=== PATIENT | male | born 1965 | race African-American/Black ===

== ENCOUNTER 2018-05-22 10:52 | Inpatient (IN) | payer OTHER ==
[2018-05-22 11:29] VITALS: BMI 29.6
[2018-05-22] MEDS ORDERED: ASPIRIN 81 MG CHEWABLE TABLETS PO ONE (12:06)
[2018-05-22 12:35] LABS: BASO % 1.3 % (0-2.0); EOS % 1.2 % (0-4.5); HEMOGLOBIN 13.9 GM/dL (11.7-16.9); LYMPH % 33.7 % (8-40); MCHC 35.7 g/dl (32.0-35.9); MEAN CELL VOLUME 100.9 fl (80-96); MONO % 7.4 % (3.8-10.2); NEUT % 56.4 % (42.8-82.8); PLATELET COUNT 167 K/MM3 (134-434); RBC 3.86 M/mm3 (4.00-5.60); RDW 14.3 % (11.9-15.9)
--- NOTE | 2018-05-22 12:44 | PDOC ---
History of Present Illness - General Chief Complaint: Chest Pain Stated Complaint: CHEST PAIN Time Seen by Provider: 05/22/18 12:00 - History of Present Illness Initial Comments: 05/22/18 12:42 52 yo M with h/o HTN, IDDM, Hypothyroidism who p/w left sided chest pain at rest. Patient endorses 2 weeks of unremitting, non radiating, non pleuritic, fluctuating, left sided, sharp, and dull chest pain, with no identifiable triggers or alleviators. Endorses palpitations lasting seconds and resolving yeserday (05/21/18) evening at rest. Denies h/o similiar presentation. No other asx. complaints. Patient denies SIMENTAL, vision change, palpitations, cough, wheezing, orthopena, PND , leg swelling/pain, N/V, F,C, SOB, urinary complaints, hematuria, BPR, abdominal pain, diarrhea, constipation, lightheadedness, weakness, sensory changes. PMHx: as noted above. Denies h/o ACS, MO, stent placement, CABG, DVT/PE FHx: Father ( MO ) ROS: as noted SHx: Etoh, IVDA, tobacco use Allergies: NKDA PMD: Sudhir Looney Past History - Past Medical History Allergies/Adverse Reactions: Allergies Allergy/AdvReac Type Severity Reaction Status Date / Time No Known Allergies Allergy Verified 05/22/18 11:24 Home Medications: Ambulatory Orders Levothyroxine [Synthroid -] 50 mcg PO DAILY 01/29/12 Escitalopram Oxalate [Lexapro -] 5 mg PO DAILY 01/24/15 Insulin (Levemir) [Levemir Vial] 30 units SQ DAILY 01/24/15 Insulin Lispro [Humalog] 30 units SQ BID 01/24/15 Losartan 50Mg/Hctz 12.5MG [Hyzaar -] 1 tab PO DAILY 01/24/15 Mercaptopurine [Purinethol -] 50 mg PO BID 01/24/15 Quetiapine Fumarate [Seroquel] 1 tab PO HS 01/24/15 predniSONE [Deltasone -] 20 mg PO DAILY 01/24/15 Anemia: No Asthma: No Cancer: No Cardiac Disorders: No CVA: No COPD: No CHF: No Dementia: No Diabetes: Yes (IDDM) GI Disorders: Yes (COLITIS) Disorders: No HTN: No Hypercholesterolemia: No Liver Disease: No Seizures: No Thyroid Disease: Yes (HYPO) - Surgical History Abdominal Surgery: No Appendectomy: No Cardiac Surgery: No Cholecystectomy: No Lung Surgery: No Neurologic Surgery: No Orthopedic Surgery: No - Suicide/Smoking/Psychosocial Hx Smoking Status: No Smoking History: Never smoked Have you smoked in the past 12 months: No Number of Cigarettes Smoked Daily: 0 Hx Alcohol Use: No Drug/Substance Use Hx: No Substance Use Type: None Hx Substance Use Treatment: No Cardiac Specific PMH - Complaint Specific PMHX Pacemaker: No Review of Systems - Review of Systems Comments:: 05/22/18 12:42 GENERAL/CONSTITUTIONAL: No fever or chills. No weakness. HEAD, EYES, EARS, NOSE AND THROAT: No change in vision. No ear pain or discharge. No sore throat. CARDIOVASCULAR: + chest pain. No shortness of breath RESPIRATORY: No cough, wheezing, or hemoptysis. GASTROINTESTINAL: No nausea, vomiting, diarrhea or constipation. GENITOURINARY: No dysuria, frequency, or change in urination. MUSCULOSKELETAL: No joint or muscle swelling or pain. No neck or back pain. SKIN: No rash NEUROLOGIC: No headache, vertigo, loss of consciousness, or change in strength/ sensation. ENDOCRINE: No increased thirst. No abnormal weight change HEMATOLOGIC/LYMPHATIC: No anemia, easy bleeding, or history of blood clots. ALLERGIC/IMMUNOLOGIC: No hives or skin allergy. *Physical Exam - Vital Signs Last Vital Signs Temp Pulse Resp BP Pulse Ox 98.4 F 88 18 126/71 99 05/22/18 11:24 05/22/18 11:24 05/22/18 11:24 05/22/18 11:24 05/22/18 11:24 - Physical Exam Comments: 05/22/18 12:42 GENERAL: Awake, alert, and fully oriented, in no acute distress HEAD: No signs of trauma, normocephalic, atraumatic EYES: PERRLA, EOMI, sclera anicteric, conjunctiva clear ENT: Hearing grossly normal, nares patent, oropharynx clear without exudates. Moist mucosa NECK: Normal ROM, supple, no lymphadenopathy, JVD, or masses LUNGS: No distress, speaks full sentences, clear to auscultation bilaterally HEART: Regular rate and rhythm, normal S1 and S2, no murmurs, rubs or gallops, peripheral pulses normal and equal bilaterally. ABDOMEN: Soft, nontender, normoactive bowel sounds. No guarding, no rebound. No masses EXTREMITIES : Normal inspection, Normal range of motion, no edema. No clubbing or cyanosis. NEUROLOGICAL: Cranial nerves II through XII grossly intact. Normal speech, normal gait, no focal sensorimotor deficits SKIN: Warm, Dry, normal turgor, no rashes or lesions noted Heart Score/ECG Review - History History: Slightly suspicious - Electrocardiogram EKG: Non specific repolarization disturbance - Age Age: 45-65 - Risk Factors Risk Factors Heart Score: Yes Hx Hypercholesterolemia, Yes Hx Hypertension, Yes Hx Diabetes, Yes Positive family hx of cardiac disease, Yes Hx Obesity Based on the list above the patient has:: >/=3 risk factors or Hx atherosclerotic disease - Troponin Troponin: 1-3x normal limit - Score Heart Score - Total: 5 Moderate Sedation - Procedure Monitoring Vital Signs: Procedure Monitoring Vital Signs Temperature 98.4 F 05/22/18 11:24 Pulse Rate 88 05/22/18 11:24 Respiratory Rate 18 05/22/18 11:24 Blood Pressure 126/71 05/22/18 11:24 O2 Sat by Pulse Oximetry (%) 99 05/22/18 11:24 ED Treatment Course - LABORATORY CBC & Chemistry Diagram: 05/22/18 12:17 05/22/18 12:06 - ADDITIONAL ORDERS Additional order review: Laboratory Results 05/22/18 05/22/18 05/22/18 12:17 12:17 12:06 PT with INR 11.50 INR 0.97 D-Dimer < 215 Sodium 141 Potassium 3.9 Chloride 107 Carbon Dioxide 28 Anion Gap 6 L BUN 13 Creatinine 1.0 Creat Clearance w eGFR 78.16 Random Glucose 124 H Calcium 8.4 L Magnesium 2.2 Total Bilirubin 0.6 AST 27 ALT 42 Alkaline Phosphatase 70 Creatine Kinase 542 H Creatine Kinase Index 0.6 CK-MB (CK-2) 3.5 Troponin I < 0.02 Total Protein 6.9 Albumin 3.9 05/22/18 12:17 RBC 3.86 L MCV 100.9 H MCHC 35.7 RDW 14.3 D MPV 9.0 Neutrophils % 56.4 D Lymphocytes % 33.7 D Monocytes % 7.4 Eosinophils % 1.2 Basophils % 1.3 D - Medications Given in the ED: ED Medications Discontinued Medications Generic Name Dose Route Start Last Admin Trade Name Sylvie PRN Reason Stop Dose Admin Aspirin 162 mg 05/22/18 12:06 05/22/18 12:56 Asa - PO 05/22/18 12:07 162 mg ONCE ONE Administration Medical Decision Making - Medical Decision Making 05/22/18 12:43 52 yo M with h/o HTN, IDDM, Ulcerative Colitis, Hypothyroidism who p/w chest pain at rest x 2 weeks, and palpitations x 1 day. Vitals wnl, AF, A&Ox3. Physical exam unremarkable. ACS/Mi r/o. Low risk PE based on Weils criteria. Will consider PNA, pericardial or pleural effusion, pericarditis, costochondrritis, gastritis, esophagitis. Plan to admit tele/obs, multiple risk factors, suspicious presentation. PMD Sudhir Looney. Dr. underwood admit [id number] ED Course: Arrives from fast track. Pending labs, CXR Received ASA 05/22/18 12:59 CBC,CMP: Unremarkable Trop: Neg 05/22/18 13:02 Heart score 4 EKG: Sinus bradycardia 56, LVH, LAD, absent NANCY, STD. Nml interval duration and axis. 05/22/18 15:[address] Underwood answering service. Awaiting call back . 05/22/18 15:[address] underwood. Admitted Consult for Dr. obrien placed *DC/Admit/Observation/Transfer Diagnosis at time of Disposition: Chest pain at rest - Discharge Dispostion Condition at time of disposition: Stable Decision to Admit order: Yes Decision to Admit order Date/Time: Decision to Admit Order Category Date Time Status Decision to Admit to Hospital Routine Admission 05/22/18 13:02 Active - Referrals Referrals: Sudhir Looney MD [Primary Care Provider] - Kendrick Garner MD [Staff Physician] - - Patient Instructions Printed Discharge Instructions: DI for Chest Pain Additional Instructions: Please return to the emergency department with any new or worsening symptoms or concerns. Please follow up with your primary care physician within 72 hours. Please follow up with cardiology within 48 hours. - Post Discharge Activity - Attestations Physician Attestion: 05/22/18 12:44 I attest to the information provided in this note.
[2018-05-22 12:45] LABS: INR 0.97 (0.83-1.09); PROTHROMBIN TIME (PATIENT) 11.5 SEC (9.7-13.0)
[2018-05-22] MEDS ORDERED: ASPIRIN COATED 81 MG TABLET.EC ONE (12:54)
[2018-05-22] MEDS ORDERED: ASPIRIN 81 MG CHEWABLE TABLETS ONE (12:56)
[2018-05-22 13:19] LABS: ALBUMIN 3.9 g/dl (3.4-5.0); ALK PHOS 70 U/L (45-117); ANION GAP 6 MMOL/L (8-16); BILIRUBIN,TOTAL 0.6 mg/dL (0.2-1); BLOOD UREA NITROGEN 13 mg/dL (7-18); CALCIUM 8.4 mg/dL (8.5-10.1); CHLORIDE 107 mmol/L (98-107); CO2 28 mmol/L (21-32); GLUCOSE,RANDOM 124 mg/dL (74-106); MAGNESIUM 2.2 mg/dL (1.8-2.4); POTASSIUM 3.9 mmol/L (3.5-5.1); SGOT/AST 27 U/L (15-37); SGPT/ALT 42 U/L (13-61); SODIUM 141 mmol/L (136-145); TOT PROT 6.9 g/dl (6.4-8.2)
--- NOTE | 2018-05-22 16:06 | PDOC ---
Attending Attestation - Resident Resident Name: Tyler Tejeda - ED Attending Attestation I have performed the following: I have examined & evaluated the patient, The case was reviewed & discussed with the resident, I agree w/resident's findings & plan, Exceptions are as noted - HPI HPI: 05/22/18 16:05 52 M with HTN, IDDM, Hypothyroidism presenting to ED with L sided chest pain. No SOB. No F/C/cough. No leg swelling. No h/o DVT. No recent travel/ immobilization. - Physicial Exam PE: 05/22/18 16:05 "GENERAL: Awake, alert, and fully oriented, in no acute distress. HEAD: No signs of trauma EYES: PERRLA, EOMI, sclera anicteric, conjunctiva clear ENT: Auricles normal inspection, hearing grossly normal, nares patent, oropharynx clear without exudates. Moist mucosa NECK: Nontender, no stepoffs, Normal ROM, supple, no lymphadenopathy, JVD, or masses LUNGS: Breath sounds equal, clear to auscultation bilaterally. No wheezes, and no crackles HEART: Regular rate and rhythm, normal S1 and S2, no murmurs, rubs or gallops ABDOMEN: Soft, nontender, normoactive bowel sounds. No guarding, no rebound. No masses EXTREMITIES: Normal range of motion, no edema. No clubbing or cyanosis. No cords, erythema, or tenderness NEUROLOGICAL: Cranial nerves II through XII intact. 5/5 strength and sensation in all extremities, Normal speech, normal gait, normal cerebellar function SKIN: Warm, Dry, normal turgor, no rashes or lesions noted. - Medical Decision Making 05/22/18 16:05 52 M with chest pain. Has + family history of cardiac disease. - Labs, trop - CXR
[2018-05-22 23:17] LABS: URINE APPEARANCE CLEAR; URINE BILIRUBIN NEGATIVE (<2.0 mg/dL); URINE COLOR LTYELLOW; URINE GLUCOSE (UA) 3+ (NEGATIVE); URINE KETONE NEGATIVE (NEGATIVE); URINE LEUK ESTERASE NEGATIVE (NEGATIVE); URINE NITRITE NEGATIVE (NEGATIVE); URINE PROTEIN NEGATIVE (NEGATIVE)
[2018-05-23] MEDS: INSULIN (LEVEMIR) 100 UNITS/ML UNITS SQ SCH (06:08)
[2018-05-23] MEDS: INSULIN SLIDING SCALE (NOVOLOG) 1 VIAL SQ SCH ×4 (06:09→21:10)
[2018-05-23] MEDS: LEVOTHYROXINE NA 50 MCG TABLET (FP) PO SCH (06:10)
[2018-05-23] MEDS: INSULIN (NOVOLOG) ASPART 100 UNITS/ML 10ML VIAL SQ SCH ×2 (06:14→17:54)
[2018-05-23 07:17] LABS: BASO % 0.6 % (0-2.0); EOS % 1.8 % (0-4.5); HEMATOCRIT 35.8 % (35.4-49); HEMOGLOBIN 12.7 GM/dL (11.7-16.9); LYMPH % 28.8 % (8-40); MCH 35.6 pg (25.7-33.7); MCHC 35.4 g/dl (32.0-35.9); MEAN CELL VOLUME 100.7 fl (80-96); MEAN PLT VOLUME 9.3 fl (7.5-11.1); MONO % 6.8 % (3.8-10.2); PLATELET COUNT 150 K/MM3 (134-434); RBC 3.56 M/mm3 (4.00-5.60); RDW 14.6 % (11.9-15.9); WHITE BLOOD COUNT 3.4 K/mm3 (4.0-10.0)
[2018-05-23 07:38] LABS: ALBUMIN 3.3 g/dl (3.4-5.0); ALK PHOS 63 U/L (45-117); ANION GAP 5 MMOL/L (8-16); BILIRUBIN,TOTAL 0.7 mg/dL (0.2-1); BLOOD UREA NITROGEN 16 mg/dL (7-18); CALCIUM 8.2 mg/dL (8.5-10.1); CHLORIDE 103 mmol/L (98-107); CO2 28 mmol/L (21-32); CREATININE 1.1 mg/dL (0.55-1.3); GLUCOSE,RANDOM 284 mg/dL (74-106); POTASSIUM 4.1 mmol/L (3.5-5.1); SGOT/AST 20 U/L (15-37); SGPT/ALT 35 U/L (13-61); SODIUM 136 mmol/L (136-145)
[2018-05-23 08:15] LABS: CHOLESTEROL 119 mg/dL (50-200); HDL CHOLESTEROL 51 mg/dL (40-60); TRIGLYCERIDES 69 mg/dL (0-150)
--- NOTE | 2018-05-23 09:44 | CON.CARD ---
Consult Consult Specialty:: Cardiology Referred by:: Dr. Underwood Reason for Consultation:: chest pain - History of Present Illness Chief Complaint: chest pain History of Present Illness: 52M with Ulcerative Colitis, DM and HTN presents with an episode of palpitations and one month of sharp, left sided chest pain. Pain occurs at rest, non-exertional. Lasts several seconds. No associated N/V or diaphoresis. No syncope. No PND or orthopnea. No edema. - History Source History Provided By: Patient Limitations to Obtaining History: No Limitations - Past Medical History Cardio/Vascular: Yes: HTN Gastrointestinal: Yes: Ulcerative Colitis Psych: Yes: Depression Endocrine: Yes: Diabetes Insipidus, Hypothyroidism - Alcohol/Substance Use Hx Alcohol Use: No - Smoking History Smoking history: Never smoked Have you smoked in the past 12 months: No Aproximately how many cigarettes per day: 0 - Social History Usual Living Arrangement: Alone History of Recent Travel: No Home Medications - Allergies Allergies/Adverse Reactions: Allergies Allergy/AdvReac Type Severity Reaction Status Date / Time No Known Allergies Allergy Verified 05/22/18 11:24 - Home Medications Home Medications: Ambulatory Orders Levothyroxine [Synthroid -] 50 mcg PO DAILY 01/29/12 Escitalopram Oxalate [Lexapro -] 5 mg PO DAILY 01/24/15 Insulin (Levemir) [Levemir Vial] 30 units SQ DAILY 01/24/15 Insulin Lispro [Humalog] 30 units SQ BID 01/24/15 Losartan 50Mg/Hctz 12.5MG [Hyzaar -] 1 tab PO DAILY 01/24/15 Mercaptopurine [Purinethol -] 50 mg PO BID 01/24/15 Quetiapine Fumarate [Seroquel] 1 tab PO HS 01/24/15 predniSONE [Deltasone -] 20 mg PO DAILY 01/24/15 Family Disease History - Family Disease History Family Disease History: Heart Disease: Father, Mother Review of Systems Findings/Remarks: see HPI - Review of Systems Constitutional: reports: No Symptoms Eyes: reports: No Symptoms HENT: reports: No Symptoms Neck: reports: No Symptoms Cardiovascular: reports: Chest Pain Gastrointestinal: reports: No Symptoms Genitourinary: reports: No Symptoms Breasts: reports: No Symptoms Reported Musculoskeletal: reports: No Symptoms Integumentary: reports: No Symptoms Neurological: reports: No Symptoms Endocrine: reports: No Symptoms Hematology/Lymphatic: reports: No Symptoms Psychiatric: reports: No Symptoms - Risk Factors Known Risk Factors: Yes: Diabetes Mellitus, Hypertension Vital Signs: Vital Signs Temperature 97.8 F 05/23/18 04:42 Pulse Rate 52 L 05/23/18 04:42 Respiratory Rate 18 05/23/18 05:31 Blood Pressure 116/59 L 05/23/18 04:42 O2 Sat by Pulse Oximetry (%) 98 05/23/18 05:31 Constitutional: Yes: No Distress, Calm Eyes: Yes: Conjunctiva Clear, EOM Intact Neck: Yes: Supple Respiratory: Yes: CTA Bilaterally Gastrointestinal: Yes: Soft Cardiovascular: Yes: Regular Rate and Rhythm JVD: No Carotid Bruit: No Heart Sounds: Yes: S1, S2 Edema: No Peripheral Pulses WNL: Yes Neurological: Yes: Alert, Oriented ...Motor Strength: WNL Psychiatric: Yes: WNL - Other Data Labs, Other Data: CBC, BMP 05/23/18 06:35 05/23/18 06:35 INR, PTT INR 0.97 (0.83-1.09) 05/22/18 12:17 Troponin, BNP 05/22/18 05/23/18 12:06 06:35 Troponin I < 0.02 < 0.02 Troponin, BNP 05/22/18 05/23/18 12:06 06:35 Troponin I < 0.02 < 0.02 Sinus Freddie 56bpm, LAD. Echo: Pending Ejection Fraction %: LVEF > or = 40 % Imaging - Results Chest X-ray: Image Reviewed EKG: Image Reviewed Problem List - Problems (1) Chest pain at rest Code(s): R07.9 - CHEST PAIN, UNSPECIFIED (2) Hypertension Code(s): I10 - ESSENTIAL (PRIMARY) HYPERTENSION Qualifiers: Hypertension type: essential hypertension Qualified Code(s): I10 - Essential (primary) hypertension (3) Diabetes Code(s): E11.9 - TYPE 2 DIABETES MELLITUS WITHOUT COMPLICATIONS Qualifiers: Diabetes mellitus type: type 2 Assessment/Plan IMP: Atypical chest pain Hypertension Type 2 DM REC: 1. ASA 2. Echo for EF and wall motion, r/o pericardial disease 3. For stress MPI prior to discharge.
[2018-05-23] MEDS ORDERED: LOSARTAN 50MG/HCTZ 12.5MG 1 TAB (FP) PO SCH (10:00)
[2018-05-23] MEDS: HYDROCHLOROTHIAZIDE 12.5 MG CAPSULE (FP) PO SCH (10:41)
[2018-05-23] MEDS: ESCITALOPRAM OXALATE 10 MG TABLET (FP) PO SCH (10:41)
[2018-05-23] MEDS: LOSARTAN POTASSIUM 50 MG TABLET (FP) PO SCH (10:42)
[2018-05-23] MEDS: HEPARIN NA (PORCINE) 5,000 UNITS/ML 1ML VIAL SQ SCH ×2 (10:42→21:03)
[2018-05-23] MEDS: ASPIRIN COATED 81 MG TABLET.EC PO SCH (10:42)
[2018-05-23] MEDS ORDERED: PT OWN MED DRAWER 7, Y5N ONE ×2 (12:46→20:59)
[2018-05-23] MEDS: MERCAPTOPURINE 50 MG TABLET PO SCH ×2 (12:47→21:04)
--- NOTE | 2018-05-23 17:35 | HP ---
Admitting History and Physical - Past Medical History Cardiovascular: Yes: HTN Gastrointestinal: Yes: Ulcerative Colitis Psych: Yes: Depression Endocrine: Yes: Diabetes Insipidus, Hypothyroidism - Smoking History Smoking history: Never smoked Have you smoked in the past 12 months: No Aproximately how many cigarettes per day: 0 - Alcohol/Substance Use Hx Alcohol Use: No - Social History History of Recent Travel: No Home Medications - Allergies Allergies/Adverse Reactions: Allergies Allergy/AdvReac Type Severity Reaction Status Date / Time No Known Allergies Allergy Verified 05/22/18 11:24 - Home Medications Home Medications: Ambulatory Orders Levothyroxine [Synthroid -] 50 mcg PO DAILY 01/29/12 Escitalopram Oxalate [Lexapro -] 5 mg PO DAILY 01/24/15 Insulin (Levemir) [Levemir Vial] 30 units SQ DAILY 01/24/15 Insulin Lispro [Humalog] 30 units SQ BID 01/24/15 Losartan 50Mg/Hctz 12.5MG [Hyzaar -] 1 tab PO DAILY 01/24/15 Mercaptopurine [Purinethol -] 50 mg PO BID 01/24/15 Quetiapine Fumarate [Seroquel] 1 tab PO HS 01/24/15 predniSONE [Deltasone -] 20 mg PO DAILY 01/24/15 Family Disease History - Family Disease History Family Disease History: Heart Disease: Father, Mother Physical Examination Vital Signs: Vital Signs Temperature 98.1 F 05/23/18 14:00 Pulse Rate 69 05/23/18 14:00 Respiratory Rate 18 05/23/18 10:00 Blood Pressure 136/77 05/23/18 14:00 O2 Sat by Pulse Oximetry (%) 98 05/23/18 05:31 Labs: CBC, BMP 05/23/18 06:35 05/23/18 06:35
--- NOTE | 2018-05-23 18:05 | EKG ---
Test Reason : Blood Pressure : / mmHG Vent. Rate : 056 BPM Atrial Rate : 056 BPM P-R Int : 134 ms QRS Dur : 092 ms QT Int : 450 ms P-R-T Axes : 057 -34 -18 degrees QTc Int : 434 ms SINUS BRADYCARDIA POSSIBLE LEFT ATRIAL ENLARGEMENT LEFT AXIS DEVIATION LEFT VENTRICULAR HYPERTROPHY ABNORMAL ECG WHEN COMPARED WITH ECG OF 18-NOV-2008 19:01, NO SIGNIFICANT CHANGE WAS FOUND Confirmed by MD MELANY, HUY ([id number]) on 05/23/2018 6:05:33 PM Referred By: Confirmed By:HUY MOSLEY MD
[2018-05-24] MEDS: INSULIN (LEVEMIR) 100 UNITS/ML UNITS SQ SCH (06:08)
[2018-05-24] MEDS: LEVOTHYROXINE NA 50 MCG TABLET (FP) PO SCH (06:08)
[2018-05-24] MEDS: INSULIN SLIDING SCALE (NOVOLOG) 1 VIAL SQ SCH ×5 (06:09→22:12)
[2018-05-24] MEDS: INSULIN (NOVOLOG) ASPART 100 UNITS/ML 10ML VIAL SQ SCH ×2 (06:10→17:11)
[2018-05-24] MEDS: LOSARTAN POTASSIUM 50 MG TABLET (FP) PO SCH (09:17)
[2018-05-24] MEDS: HYDROCHLOROTHIAZIDE 12.5 MG CAPSULE (FP) PO SCH (09:17)
[2018-05-24] MEDS: HEPARIN NA (PORCINE) 5,000 UNITS/ML 1ML VIAL SQ SCH ×2 (09:18→21:29)
[2018-05-24] MEDS: ESCITALOPRAM OXALATE 10 MG TABLET (FP) PO SCH (09:18)
[2018-05-24] MEDS: ASPIRIN COATED 81 MG TABLET.EC PO SCH (09:20)
--- NOTE | 2018-05-24 09:39 | PN ---
Progress Note, Physician Chief Complaint: seen and examined Describes constant chest pain under left arm, pectoral region - Current Medication List Current Medications: Active Medications Aspirin (Ecotrin -) 81 mg PO DAILY [facility] Last Admin: 05/24/18 09:20 Dose: 81 mg Escitalopram Oxalate (Lexapro -) 5 mg PO DAILY [facility] Last Admin: 05/24/18 09:18 Dose: Not Given Heparin Sodium (Porcine) (Heparin -) 5,000 unit SQ BID [facility] Last Admin: 05/24/18 09:18 Dose: 5,000 unit Hydrochlorothiazide (Hctz -) 12.5 mg PO DAILY [facility] Last Admin: 05/24/18 09:17 Dose: 12.5 mg [facility] Admin: 05/24/18 06:10 Dose: Not Given Insulin Aspart (Novolog Vial Sliding Scale -) 1 vial SQ [facility]; Protocol Last Admin: 05/24/18 06:09 Dose: 2 units Insulin Detemir (Levemir Vial) 30 units SQ DAILY@0700 [facility] Last Admin: 05/24/18 06:08 Dose: 30 units Levothyroxine Sodium (Synthroid -) 50 mcg PO DAILY@0700 [facility] Last Admin: 05/24/18 06:08 Dose: 50 mcg Losartan Potassium (Cozaar -) 50 mg PO DAILY [facility] Last Admin: 05/24/18 09:17 Dose: 50 mg Mercaptopurine (Purinethol -) 50 mg PO BID [facility] Last Admin: 05/23/18 21:04 Dose: 50 mg - Objective Vital Signs: Vital Signs Temperature 97.7 F 05/24/18 09:00 Pulse Rate 53 L 05/24/18 09:00 Respiratory Rate 17 05/24/18 09:00 Blood Pressure 122/69 05/24/18 09:00 O2 Sat by Pulse Oximetry (%) 100 05/24/18 09:00 Constitutional: Yes: No Distress Cardiovascular: Yes: Regular Rate and Rhythm Respiratory: Yes: CTA Bilaterally Gastrointestinal: Yes: Soft Edema: No Neurological: Yes: Alert, Oriented ...Motor Strength: WNL Labs: CBC, BMP 05/23/18 06:35 05/23/18 06:35 INR, PTT INR 0.97 (0.83-1.09) 05/22/18 12:17 - ....Imaging EKG: Image Reviewed Problem List - Problems (1) Chest pain at rest Code(s): R07.9 - CHEST PAIN, UNSPECIFIED (2) Hypertension Code(s): I10 - ESSENTIAL (PRIMARY) HYPERTENSION Qualifiers: Hypertension type: essential hypertension Qualified Code(s): I10 - Essential (primary) hypertension (3) Diabetes Code(s): E11.9 - TYPE 2 DIABETES MELLITUS WITHOUT COMPLICATIONS Qualifiers: Diabetes mellitus type: type 2 Assessment/Plan IMP: Atypical chest pain Hypertension Type 2 DM REC: 1. ASA 2. Echo for EF and wall motion, r/o pericardial disease 3. For stress MPI prior to discharge. If above negative, plan for d/c early afternoon tomorrow.
[2018-05-24] MEDS: MERCAPTOPURINE 50 MG TABLET PO SCH ×2 (10:28→21:29)
--- NOTE | 2018-05-24 19:56 | PN ---
Progress Note, Physician History of Present Illness: Pt still complains of SSCP mostly near Lt arm wc is nonreproducible - Current Medication List Current Medications: Active Medications Aspirin (Ecotrin -) 81 mg PO DAILY [facility] Last Admin: 05/24/18 09:20 Dose: 81 mg Escitalopram Oxalate (Lexapro -) 5 mg PO DAILY [facility] Last Admin: 05/24/18 09:18 Dose: Not Given Heparin Sodium (Porcine) (Heparin -) 5,000 unit SQ BID [facility] Last Admin: 05/24/18 09:18 Dose: 5,000 unit Hydrochlorothiazide (Hctz -) 12.5 mg PO DAILY [facility] Last Admin: 05/24/18 09:17 Dose: 12.5 mg [facility] Last Admin: 05/24/18 17:11 Dose: Not Given Insulin Aspart (Novolog Vial Sliding Scale -) 1 vial SQ [facility]; Protocol Last Admin: 05/24/18 17:11 Dose: Not Given Insulin Detemir (Levemir Vial) 30 units SQ DAILY@0700 [facility] Last Admin: 05/24/18 06:08 Dose: 30 units Levothyroxine Sodium (Synthroid -) 50 mcg PO DAILY@0700 [facility] Last Admin: 05/24/18 06:08 Dose: 50 mcg Losartan Potassium (Cozaar -) 50 mg PO DAILY [facility] Last Admin: 05/24/18 09:17 Dose: 50 mg Mercaptopurine (Purinethol -) 50 mg PO BID [facility] Last Admin: 05/24/18 10:28 Dose: 50 mg - Objective Vital Signs: Vital Signs Temperature 97.7 F 05/24/18 17:00 Pulse Rate 57 L 05/24/18 17:00 Respiratory Rate 20 05/24/18 17:00 Blood Pressure 114/73 05/24/18 17:00 O2 Sat by Pulse Oximetry (%) 100 05/24/18 09:00 Constitutional: Yes: Well Nourished HENT: Yes: WNL Neck: Yes: WNL, Supple Cardiovascular: Yes: WNL, Regular Rate and Rhythm Respiratory: Yes: WNL, Regular, CTA Bilaterally Gastrointestinal: Yes: WNL, Normal Bowel Sounds, Soft Edema: No Labs: CBC, BMP 05/23/18 06:35 05/23/18 06:35 INR, PTT INR 0.97 (0.83-1.09) 05/22/18 12:17 Problem List - Problems (1) Chest pain Assessment/Plan: As per cardio Cont ASA Monitor BP Await echo/stress test Code(s): R07.9 - CHEST PAIN, UNSPECIFIED (2) Diabetes Assessment/Plan: Cont sliding scale w/ coverage Cont levemir/novolog Code(s): E11.9 - TYPE 2 DIABETES MELLITUS WITHOUT COMPLICATIONS Qualifiers: Diabetes mellitus type: type 2 (3) Hypertension Assessment/Plan: BP stable Cont losartan/hctz Code(s): I10 - ESSENTIAL (PRIMARY) HYPERTENSION Qualifiers: Hypertension type: essential hypertension Qualified Code(s): I10 - Essential (primary) hypertension (4) Hypothyroidism Assessment/Plan: Cont levothyroxine Code(s): E03.9 - HYPOTHYROIDISM, UNSPECIFIED (5) Depression Assessment/Plan: Cont lexapro Code(s): F32.9 - MAJOR DEPRESSIVE DISORDER, SINGLE EPISODE, UNSPECIFIED
[2018-05-24] MEDS ORDERED: PT OWN MED DRAWER 7, Y5N ONE (21:21)
[2018-05-25] MEDS: INSULIN (NOVOLOG) ASPART 100 UNITS/ML 10ML VIAL SQ SCH ×2 (06:10→18:06)
[2018-05-25] MEDS: INSULIN (LEVEMIR) 100 UNITS/ML UNITS SQ SCH (06:10)
[2018-05-25] MEDS: LEVOTHYROXINE NA 50 MCG TABLET (FP) PO SCH (06:11)
[2018-05-25] MEDS: INSULIN SLIDING SCALE (NOVOLOG) 1 VIAL SQ SCH ×3 (06:45→16:46)
[2018-05-25] MEDS: LOSARTAN POTASSIUM 50 MG TABLET (FP) PO SCH (12:57)
[2018-05-25] MEDS: ASPIRIN COATED 81 MG TABLET.EC PO SCH (12:57)
[2018-05-25] MEDS: HYDROCHLOROTHIAZIDE 12.5 MG CAPSULE (FP) PO SCH (12:58)
[2018-05-25] MEDS: HEPARIN NA (PORCINE) 5,000 UNITS/ML 1ML VIAL SQ SCH (12:58)
[2018-05-25] MEDS: ESCITALOPRAM OXALATE 10 MG TABLET (FP) PO SCH (12:59)
[2018-05-25] MEDS: MERCAPTOPURINE 50 MG TABLET PO SCH (13:16)
--- NOTE | 2018-05-25 16:05 | ECHO ---
Name: BRYANT DUNN Exam:Adult Echocardiogram Study Date: 05/25/2018 08:17 AM Age: 52 yrs Reason For Study: Chest pain Height: 69 in Weight: 207 lb BSA: 2.1 m2 MMode/2D Measurements & Calculations IVSd: 1.00 cm Ao root diam: 3.3 cm LVIDd: 5.2 cm LA dimension: 3.8 cm LVIDs: 3.8 cm LVPWd: 0.99 cm EDV(Teich): 131.9 ml LVOT diam: 2.3 cm ESV(Teich): 61.0 ml TAPSE: 3.6 cm Doppler Measurements & Calculations MV E max margarito: 57.3 cm/sec Ao V2 max: 134.0 cm/sec MV A max margarito: 70.6 cm/sec Ao max P.2 mmHg MV E/A: 0.81 Ao V2 mean: 94.8 cm/sec MV dec time: 0.26 sec Ao mean P.0 mmHg Ao V2 VTI: 30.5 cm MELISSA(I,D): 1.9 cm2 MELISSA(V,D): 1.8 cm2 LV V1 max P.5 mmHg MR max margarito: 398.2 cm/sec LV V1 mean P.0 mmHg MR max P.6 mmHg LV V1 max: 60.4 cm/sec LV V1 mean: 39.1 cm/sec LV V1 VTI: 14.4 cm SV(LVOT): 57.0 ml TR max margarito: 188.9 cm/sec TR max P.5 mmHg PI end-d margarito: 99.8 cm/sec Med Peak E' Margarito: 4.5 cm/sec Med E/e': 12.8 Lat Peak E' Margarito: 5.8 cm/sec Lat E/e': 10.0 Procedure A complete two-dimensional transthoracic echocardiogram was performed (2D, M-mode, Doppler and color flow Doppler). Left Ventricle The left ventricle is normal in size. Left ventricular systolic function is normal. Ejection Fraction = 55- 60%. Grade I diastolic dysfunction, (abnormal relaxation pattern). Ratio E/E'= 12. No regional wall m otion abnormalities noted. Right Ventricle The right ventricle is normal size. The right ventricular systolic function is normal. RV systolic TD I is 13 cm/s. Atria The left atrial size is normal. Right atrial size is normal. Mitral Valve There is mild mitral annular calcification. There is mild to moderate mitral regurgitation. Tricuspid Valve The tricuspid valve is normal in structure and function. There is mild tricuspid regurgitation. Right ventricular systolic pressure is normal. Aortic Valve The aortic valve is normal in structure and function. No aortic regurgitation is present. Pulmonic Valve The pulmonic valve is not well visualized. Trace pulmonic valvular regurgitation. Great Vessels The aortic root is normal size. Pericardium/Pleura There is no pericardial effusion. Interpretation Summary The left ventricle is normal in size. Left ventricular systolic function is normal. No regional wall motion abnormalities noted. Ejection Fraction = 55-60%. Grade I diastolic dysfunction, (abnormal relaxation pattern). Ratio E/E'= 12 The right ventricular systolic function is normal. The left atrial size is normal. Right atrial size is normal. There is mild mitral annular calcification. There is mild to moderate mitral regurgitation. There is mild tricuspid regurgitation. Right ventricular systolic pressure is normal. Trace pulmonic valvular regurgitation. There is no pericardial effusion. Previous study is not available for comparison Kendrick Garner MD 05/25/2018 04:05 PM
[2018-05-25 17:30] VITALS: BP 129/78; PULSE 60; TEMP 97.9
== END 2018-05-25 18:55 | disposition home or self-care (01) | DRG 313 ==
LOC: JER 10:52 → JERBED 13:02 → J4W 21:42 → OBSVTOIN 05-23 03:04
PROVIDERS: ADMIT Internal Medicine; ATTEND Internal Medicine
DX: R07.89 Other chest pain (principal); K51.90 Ulcerative colitis, unspecified, without complications; E23.2 Diabetes insipidus; E03.9 Hypothyroidism, unspecified; Z79.4 Long term (current) use of insulin; F32.9 Major depressive disorder, single episode, unspecified; I10 Essential (primary) hypertension; E66.9 Obesity, unspecified; Z68.29 Body mass index [BMI] 29.0-29.9, adult; Z82.49 Family history of ischemic heart disease and other diseases of the circulatory system
CPT/HCPCS: 36415; 71046-TC-FY; 78452-TC; 80053; 80061; 81003; 82550; 82553; 82962; 83721; 83735; 84484; 85025; 85379; 85610; 93005; 93010; 93017; 93306-TC; 99283-25; A9502; G0378; J1644

== ENCOUNTER 2018-11-17 17:51 | Observation (INO) | payer OTHER ==
[2018-11-17 18:12] VITALS: BMI 30.1
--- NOTE | 2018-11-17 18:21 | PDOC ---
Rapid Medical Evaluation Chief Complaint: Palpitations Time Seen by Provider: 11/17/18 18:12 Medical Evaluation: Allergies Allergy/AdvReac Type Severity Reaction Status Date / Time No Known Allergies Allergy Verified 11/17/18 18:12 Vital Signs Temp Pulse Resp BP Pulse Ox 97.7 F 59 L 16 109/64 97 11/17/18 17:59 11/17/18 17:59 11/17/18 17:59 11/17/18 17:59 11/17/18 17:59 11/17/18 18:36 The patient presents with a chief complaint of: left sided cp, intermittent palpitations x 2 days, left eye twitching, hx cardiac stent, sent by pcp for eval I have performed a brief in-person evaluation of this patient. Pertinent physical exam findings: vss, lcta, no reproducible cp I have ordered the following: cardiac w/u The patient will proceed to the ED for further evaluation. Discharge Disposition - Diagnosis Chest pain - Referrals - Patient Instructions - Post Discharge Activity
--- NOTE | 2018-11-17 19:46 | PDOC ---
History of Present Illness - General Chief Complaint: Palpitations Stated Complaint: CARDIAC EVENT Time Seen by Provider: 11/17/18 18:12 History Source: Patient - History of Present Illness Initial Comments: 53 y/o/m here for chest palpitations and left arm tingling x2 weeks. He had a cardiac cath with stent placement 4 months ago at [facility] for clogged arteries. He states the palpitations have become more frequent over the last 2 weeks. He also has a tingling sensation in his left arm. He was cleared to resume normal physical activity 1 month ago and has been going to the gym and lifting weights. He states the tingling sensation in his left arm is worse after working out. He also complains that his left eye has been twitching for the last 2 weeks as well. He denies any change or loss of vision associated with the twitching. He denies any chest pain, SOB, dizziness, fever, cough, dysuria, or other complaints. PMHx: DM, Ulcerative colitis, HTN, hypothyroidism SHx: Cardiac Catheterization Social: denies alcohol and tobacco use PCP: Dr. Sudhir Looney Past History - Past Medical History Allergies/Adverse Reactions: Allergies Allergy/AdvReac Type Severity Reaction Status Date / Time No Known Allergies Allergy Verified 11/17/18 18:12 Home Medications: Ambulatory Orders Levothyroxine [Synthroid -] 50 mcg PO DAILY 01/29/12 Escitalopram Oxalate [Lexapro -] 5 mg PO DAILY 01/24/15 Insulin (Levemir) [Levemir Vial] 30 units SQ DAILY 01/24/15 Insulin Lispro [Humalog] units SQ BID 01/24/15 Losartan 50Mg/Hctz 12.5MG [Hyzaar -] 1 tab PO DAILY 01/24/15 Mercaptopurine [Purinethol -] 50 mg PO BID 01/24/15 Quetiapine Fumarate [Seroquel] 1 tab PO HS 01/24/15 Aspirin 81 mg PO DAILY 11/17/18 Clopidogrel Bisulfate [Plavix -] 75 mg PO DAILY 11/17/18 Anemia: No Asthma: No Cancer: No Cardiac Disorders: No CVA: No COPD: No CHF: No Dementia: No Diabetes: Yes GI Disorders: Yes (COLITIS) Disorders: No HTN: Yes Hypercholesterolemia: Yes Liver Disease: No Seizures: No Thyroid Disease: Yes (HYPO) - Surgical History Abdominal Surgery: No Appendectomy: No Cardiac Surgery: Yes (stent placed 4 months ago) Cholecystectomy: No Lung Surgery: No Neurologic Surgery: No Orthopedic Surgery: No - Suicide/Smoking/Psychosocial Hx Smoking Status: No Smoking History: Never smoked Have you smoked in the past 12 months: No Number of Cigarettes Smoked Daily: 0 Hx Alcohol Use: No Drug/Substance Use Hx: No Substance Use Type: None Hx Substance Use Treatment: No Review of Systems - Review of Systems Constitutional: No: Chills, Fever, Weakness HEENTM: Yes: Other (left eye twitching). No: Blurred Vision, Recent change in vision, Double Vision, Nose Congestion Respiratory: No: Cough, Shortness of Breath Cardiac (ROS): No: Chest Pain, Lightheadedness ABD/GI: No: Diarrhea, Nausea, Vomiting : No: Dysuria, Hematuria Integumentary: No: Rash Neurological: Yes: Tingling. No: Headache, Numbness Endocrine: Yes: Excessive Sweating *Physical Exam - Vital Signs Last Vital Signs Temp Pulse Resp BP Pulse Ox 97.7 F 59 L 16 109/64 97 11/17/18 17:59 11/17/18 17:59 11/17/18 17:59 11/17/18 17:59 11/17/18 17:59 - Physical Exam General Appearance: Yes: Nourished HEENT: positive: EOMI, Normal Voice, Symmetrical Neck: positive: Tender, Trachea midline, Supple. negative: Lymphadenopathy (R) , Lymphadenopathy (L) Respiratory/Chest: positive: Lungs Clear, Normal Breath Sounds. negative: Accessory Muscle Use Cardiovascular: positive: Regular Rhythm, Regular Rate, S1, S2 Gastrointestinal/Abdominal: positive: Normal Bowel Sounds, Soft, Tenderness ( mild left sided tenderness to palpation) Extremity: positive: Normal Capillary Refill Integumentary: positive: Normal Color Neurologic: positive: Fully Oriented, Alert, Motor Strength 5/5 ED Treatment Course - LABORATORY CBC & Chemistry Diagram: 11/17/18 19:23 11/17/18 19:23 Medical Decision Making - Medical Decision Making 11/17/18 20:18 -53 y/o/m here for chest palpitations and left arm tingling x2 weeks. He had a cardiac cath with stent placement 4 months ago at [facility] for clogged arteries. He states the palpitations have become more frequent over the last 2 weeks. He also has a tingling sensation in his left arm. -Cardiac workup ordered by RME. -Labs pending. -CXR negative for acute pathology. 11/17/18 20:48 -EKG reviewed, sinus bradycardia at 46 bpm. No acute ischemic changes. -Patient's current heart rate at 50 bpm. -CBC grossly normal. -CMP shows elevated CK at 747, trops negative. -Will contact Dr. Looney service to admit for tele obs. 11/17/18 21:36 -Spoke with Dr. Underwood, was told her hospitalist is covering for her tonight. -Microblogged admitting service for symphony. 11/17/18 21:48 -Spoke with Marquise Hagen N.P. Patient admitted for tele observation *DC/Admit/Observation/Transfer Diagnosis at time of Disposition: Chest pain, Palpitations - Discharge Dispostion Condition at time of disposition: Good - Referrals Referrals: Travis Workman [Non Staff, Medical] - - Patient Instructions - Post Discharge Activity
[2018-11-17 19:53] LABS: HEMOGLOBIN 11.9 GM/dL (11.7-16.9); MCH 35.4 pg (25.7-33.7); MCHC 34.2 g/dl (32.0-35.9); MEAN CELL VOLUME 103.7 fl (80-96); RBC 3.37 M/mm3 (4.00-5.60)
--- NOTE | 2018-11-17 19:53 | PDOC ---
Attending Attestation - Resident Resident Name: Duane Ojeda - ED Attending Attestation I have performed the following: I have examined & evaluated the patient, The case was reviewed & discussed with the resident, I agree w/resident's findings & plan, Exceptions are as noted - HPI HPI: 11/17/18 20:16 G3-year-old male presents with 2 weeks of chest pain and left arm tingling and pins and needles. Patient denies dizziness, fever, chills, cough or shortness breath - Physicial Exam PE: 11/17/18 20:17 wnwd 53 yo male in no acute distress lungs cta b/l cvs [id number] no gallops,no rubs,no murmuurs abd nontender ext no edema neuro axo3,ambulatory - Medical Decision Making 11/17/18 20:19 cxr napd patient reports nstemi earlier this year and was seen at [facility] with cardiac catheterization and stent placement In reviewing the patient's chart, he was noted May 25 of this year. He had a stress test and echo. Echo showed ejection fraction of 53% and the nuclear stress test showed a reversible small area of ischemia 11/17/18 20:[address] Donta Looney [facility] CAD,ulceraitis colitis plan OBS telemetry
[2018-11-17 19:54] LABS: BASO % 0.9 % (0-2.0); EOS % 1.1 % (0-4.5); LYMPH % 38.4 % (8-40); MEAN PLT VOLUME 8.8 fl (7.5-11.1); MONO % 7.5 % (3.8-10.2); NEUT % 52.1 % (42.8-82.8); PLATELET COUNT 183 K/MM3 (134-434); RDW 15.2 % (11.9-15.9)
[2018-11-17] MEDS ORDERED: ASPIRIN 81 MG CHEWABLE TABLETS PO ONE (20:23)
[2018-11-17 20:34] LABS: ALBUMIN 3.6 g/dl (3.4-5.0); ALK PHOS 67 U/L (45-117); ANION GAP 4 MMOL/L (8-16); BILIRUBIN,TOTAL 0.9 mg/dL (0.2-1); BLOOD UREA NITROGEN 14.7 mg/dL (7-18); CALCIUM 8.7 mg/dL (8.5-10.1); CHLORIDE 104 mmol/L (98-107); CO2 33 mmol/L (21-32); CREATININE 1.1 mg/dL (0.55-1.3); GLUCOSE,RANDOM 103 mg/dL (74-106); MAGNESIUM 2.1 mg/dL (1.8-2.4); POTASSIUM 3.7 mmol/L (3.5-5.1); SGOT/AST 35 U/L (15-37); SGPT/ALT 50 U/L (13-61); SODIUM 142 mmol/L (136-145)
[2018-11-17] MEDS ORDERED: ASPIRIN 81 MG CHEWABLE TABLETS ONE (20:52)
--- NOTE | 2018-11-17 22:38 | HP ---
Admitting History and Physical - Primary Care Physician PCP: Dr. Underwood/ Dr. solomon - Admission Chief Complaint: chest pain with palpitations History of Present Illness: 53 year old male with PMHX HTN, DM, UC, Hypothyrodism, patient had cardiac stent x1 place in June at [facility] arrived to ED today for chest pain, palpitations and left arm tingling for 2 weeks. As per patient chest palpitations and left arm tingling sensation have worsen over time. Patient has recently resume his normal physical activity 1 month ago (going to the gym and lifting weight). Patient denies any SOB, headache, dizziness, loss of vision associated with the twitching. Patient denies fever, cough, dysuria at this time. History Source: Patient Limitations to Obtaining History: No Limitations - Past Medical History Cardiovascular: Yes: HTN Gastrointestinal: Yes: Ulcerative Colitis Psych: Yes: Depression Endocrine: Yes: Diabetes Mellitus, Hypothyroidism - Past Surgical History Past Surgical History: Yes: Stent ( (stent placed 4 months ago in [facility])) - Smoking History Smoking history: Never smoked Have you smoked in the past 12 months: No Aproximately how many cigarettes per day: 0 - Alcohol/Substance Use Hx Alcohol Use: No - Social History History of Recent Travel: No Home Medications - Allergies Allergies/Adverse Reactions: Allergies Allergy/AdvReac Type Severity Reaction Status Date / Time No Known Allergies Allergy Verified 11/17/18 18:12 - Home Medications Home Medications: Ambulatory Orders Levothyroxine [Synthroid -] 50 mcg PO DAILY 01/29/12 Escitalopram Oxalate [Lexapro -] 5 mg PO DAILY 01/24/15 Insulin (Levemir) [Levemir Vial] 30 units SQ DAILY 01/24/15 Insulin Lispro [Humalog] units SQ BID 01/24/15 Losartan 50Mg/Hctz 12.5MG [Hyzaar -] 1 tab PO DAILY 01/24/15 Mercaptopurine [Purinethol -] 50 mg PO BID 01/24/15 Quetiapine Fumarate [Seroquel] 1 tab PO HS 01/24/15 Aspirin 81 mg PO DAILY 11/17/18 Clopidogrel Bisulfate [Plavix -] 75 mg PO DAILY 11/17/18 Family Disease History - Family Disease History Family Disease History: Heart Disease: Father, Mother Review of Systems - Review of Systems Constitutional: reports: No Symptoms Eyes: reports: No Symptoms, Other (Left eye twitching) HENT: reports: No Symptoms Neck: reports: No Symptoms Cardiovascular: reports: Chest Pain, Palpitations, Other (left arm numbness) Respiratory: reports: No Symptoms Gastrointestinal: reports: No Symptoms Genitourinary: reports: No Symptoms Breasts: reports: No Symptoms Reported Musculoskeletal: reports: No Symptoms Integumentary: reports: No Symptoms Neurological: reports: No Symptoms Endocrine: reports: No Symptoms Hematology/Lymphatic: reports: No Symptoms Psychiatric: reports: No Symptoms Physical Examination Vital Signs: Vital Signs Temperature 97.7 F 11/17/18 17:59 Pulse Rate 59 L 11/17/18 17:59 Respiratory Rate 16 11/17/18 17:59 Blood Pressure 109/64 11/17/18 17:59 O2 Sat by Pulse Oximetry (%) 97 11/17/18 17:59 Constitutional: Yes: No Distress, Calm Eyes: Yes: Conjunctiva Clear, EOM Intact HENT: Yes: Atraumatic, Normocephalic Neck: Yes: Supple, Trachea Midline Cardiovascular: Yes: Regular Rate and Rhythm Respiratory: Yes: Regular, CTA Bilaterally Gastrointestinal: Yes: Normal Bowel Sounds, Soft Musculoskeletal: Yes: WNL Extremities: Yes: WNL Edema: No Integumentary: Yes: WNL Neurological: Yes: Alert, Oriented ...Motor Strength: WNL Psychiatric: Yes: WNL Labs: CBC, BMP 11/17/18 19:23 11/17/18 19:23 Imaging - Results Chest X-ray: Report Reviewed (CXR: no acute disease) EKG: Report Reviewed (EKG: sinus bradycardia at 46 bpm. No acute ischemic changes.) Other: Report Reviewed (elevated CK at 747, trops negative x1) Problem List - Problems (1) Chest pain Code(s): R07.9 - CHEST PAIN, UNSPECIFIED (2) Palpitations Code(s): R00.2 - PALPITATIONS (3) Ulcerative colitis Code(s): K51.90 - ULCERATIVE COLITIS, UNSPECIFIED, WITHOUT COMPLICATIONS (4) Depression Code(s): F32.9 - MAJOR DEPRESSIVE DISORDER, SINGLE EPISODE, UNSPECIFIED (5) Diabetes Code(s): E11.9 - TYPE 2 DIABETES MELLITUS WITHOUT COMPLICATIONS Qualifiers: Diabetes mellitus type: type 2 (6) Hypertension Code(s): I10 - ESSENTIAL (PRIMARY) HYPERTENSION Qualifiers: Hypertension type: essential hypertension Qualified Code(s): I10 - Essential (primary) hypertension (7) Hypothyroidism Code(s): E03.9 - HYPOTHYROIDISM, UNSPECIFIED Assessment/Plan 53 year old male with PMHX HTN, DM, UC, Hypothyrodism, patient had cardiac stent x1 place in June at [facility] arrived to ED today for chest pain, palpitations and left arm tingling for 2 weeks. 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 - New Patient This patient is new to me today: Yes Date on this admission: 11/17/18 - Critical Care Critical Care patient: No
[2018-11-18 06:47] VITALS: PULSE 52
[2018-11-18] MEDS ORDERED: LEVOTHYROXINE NA 25 MCG TABLET (FP) ONE (06:52)
[2018-11-18] MEDS: INSULIN SLIDING SCALE (NOVOLOG) 1 VIAL SQ SCH ×2 (07:00→12:33)
[2018-11-18] MEDS ORDERED: LEVOTHYROXINE NA 50 MCG TABLET (FP) PO SCH (07:00)
[2018-11-18] MEDS ORDERED: ESCITALOPRAM OXALATE 10 MG TABLET (FP) PO SCH (10:00)
[2018-11-18] MEDS ORDERED: ASPIRIN 81 MG CHEWABLE TABLETS PO SCH (10:00)
[2018-11-18] MEDS ORDERED: MERCAPTOPURINE 50 MG TABLET PO SCH (10:00)
[2018-11-18] MEDS ORDERED: INSULIN (LEVEMIR) 100 UNITS/ML UNITS SQ SCH (10:00)
[2018-11-18] MEDS ORDERED: LOSARTAN 50MG/HCTZ 12.5MG 1 TAB (FP) PO SCH (10:00)
[2018-11-18] MEDS ORDERED: CLOPIDOGREL BISULFATE 75 MG TABLET (FP) PO SCH (10:00)
[2018-11-18] MEDS ORDERED: PT OWN MED DRAWER 7, Y5N ONE (10:47)
[2018-11-18 12:48] VITALS: BP 113/63; TEMP 97.7
--- NOTE | 2018-11-18 13:28 | EKG ---
Test Reason : Blood Pressure : / mmHG Vent. Rate : 046 BPM Atrial Rate : 046 BPM P-R Int : 126 ms QRS Dur : 096 ms QT Int : 474 ms P-R-T Axes : 070 -26 -04 degrees QTc Int : 414 ms SINUS BRADYCARDIA POSSIBLE LEFT ATRIAL ENLARGEMENT BORDERLINE ECG WHEN COMPARED WITH ECG OF 22-MAY-2018 10:46, NO SIGNIFICANT CHANGE WAS FOUND Confirmed by UTE KIM MD ([id number]) on 11/18/2018 1:28:24 PM Referred By: Confirmed By:UTE KIM MD
--- NOTE | 2018-11-18 16:52 | HOSP ---
Subjective - Review of Symptoms Events since last encounter: Patient eloped from ED before being seen today. Physical Examination Vital Signs: Vital Signs Temperature 97.7 F 11/18/18 10:00 Pulse Rate 52 L 11/18/18 10:00 Respiratory Rate 18 11/18/18 10:00 Blood Pressure 113/63 11/18/18 10:00 O2 Sat by Pulse Oximetry (%) 92 L 11/18/18 10:00 Labs: CBC, BMP 11/17/18 19:23 11/17/18 19:23
[2018-11-18] MEDS ORDERED: QUEtiapine FUMARATE 300 MG TABLET PO SCH (22:00)
== END 2018-11-18 15:30 | disposition left against medical advice (07) ==
LOC: JER 17:51 → JERBED 21:44
PROVIDERS: ADMIT Internal Medicine; ATTEND Internal Medicine
PROC: 3E013VG Introduction of Insulin into Subcutaneous Tissue, Percutaneous Approach (ICD-10-PCS; principal; 2018-11-17)
DX: R07.89 Other chest pain (principal); R00.2 Palpitations; I10 Essential (primary) hypertension; E11.9 Type 2 diabetes mellitus without complications; E03.9 Hypothyroidism, unspecified; K51.90 Ulcerative colitis, unspecified, without complications; F32.9 Major depressive disorder, single episode, unspecified; Z95.5 Presence of coronary angioplasty implant and graft; Z79.4 Long term (current) use of insulin; Z79.82 Long term (current) use of aspirin
CPT/HCPCS: 36415; 71045-TC-FY; 80053; 82550; 82553; 82962; 83735; 84484; 85025; 93005; 93010; 99285-25; G0378

== ENCOUNTER 2019-10-11 02:59 | Emergency (ER) | payer OTHER ==
[2019-10-11 03:31] VITALS: BMI 27.2
--- NOTE | 2019-10-11 03:34 | PDOC ---
History of Present Illness - General Chief Complaint: Chest Pain Stated Complaint: LEFT SIDE CHEST PAIN Time Seen by Provider: 10/11/19 03:32 - History of Present Illness Initial Comments: 10/11/19 03:34 54y/o M hx of UC, HTN, IDDM, CAD s/p stent (2019), HLD, UC presents to the ED with 1-2 wks of chest pain. pt states this episodes are intermittent and last about 10-15 minutes. This episode started at around 3 a.m. pain is left sided and reports associated numbness of his left arm. No exacerbating or relieving factors. and no associated shortness of breath. Pt does not have a hx of clots. Pt denies any nausea, vomititing , diaphoresis, fevers, chills, cough, hemoptyis, lightheadeness, weakness or unilateral leg swelling or abdominal pain. PMHx: as noted above ROS: as noted SHx: Denies Etoh, IVDA, tobacco use Allergies: NKDA ROS: GENERAL/CONSTITUTIONAL: No fever or chills. No weakness. HEAD, EYES, EARS, NOSE AND THROAT: No change in vision. No ear pain or discharge. No sore throat. CARDIOVASCULAR: +chest pain RESPIRATORY: No cough, wheezing, or hemoptysis. GASTROINTESTINAL: No nausea, vomiting, diarrhea or constipation. GENITOURINARY: No dysuria, frequency, or change in urination. MUSCULOSKELETAL: No joint or muscle swelling or pain. No neck or back pain. SKIN: No rash NEUROLOGIC: No headache, vertigo, loss of consciousness, or change in strength/sensation. ENDOCRINE: No increased thirst. No abnormal weight change HEMATOLOGIC/LYMPHATIC: No anemia, easy bleeding, or history of blood clots. ALLERGIC/IMMUNOLOGIC: No hives or skin allergy. PE: GENERAL: Awake, alert, and fully oriented, in no acute distress HEAD: No signs of trauma, normocephalic, atraumatic EYES: PERRLA, EOMI, sclera anicteric, conjunctiva clear ENT: Auricles normal inspection, hearing grossly normal, nares patent, oropharynx clear without exudates. Moist mucosa NECK: Normal ROM, supple, no lymphadenopathy, JVD, or masses LUNGS: No distress, speaks full sentences, clear to auscultation bilaterally HEART: Regular rate and rhythm, normal S1 and S2, no murmurs, rubs or gallops, peripheral pulses normal and equal bilaterally. ABDOMEN: Soft, nontender, normoactive bowel sounds. No guarding, no rebound. No masses EXTREMITIES : Normal inspection, Normal range of motion, trace edema to calves bilaterally . No clubbing or cyanosis NEUROLOGICAL: Cranial nerves II through XII grossly intact. Normal speech, normal gait, no focal sensorimotor deficits SKIN: Warm, Dry, normal turgor, no rashes or lesions noted Past History - Medical History Allergies/Adverse Reactions: Allergies Allergy/AdvReac Type Severity Reaction Status Date / Time No Known Allergies Allergy Verified 10/11/19 03:31 Home Medications: Ambulatory Orders Levothyroxine [Synthroid -] 50 mcg PO DAILY 01/29/12 Escitalopram Oxalate [Lexapro -] 5 mg PO DAILY 01/24/15 Insulin (Levemir) [Levemir Vial] 30 units SQ DAILY 01/24/15 Insulin Lispro [Humalog] 0 units SQ BID 01/24/15 Losartan 50Mg/Hctz 12.5MG [Hyzaar -] 1 tab PO DAILY 01/24/15 Mercaptopurine [Purinethol -] 50 mg PO BID 01/24/15 Quetiapine Fumarate [Seroquel] 1 tab PO HS 01/24/15 Aspirin 81 mg PO DAILY 11/17/18 Clopidogrel Bisulfate [Plavix -] 75 mg PO DAILY 11/17/18 Anemia: No Asthma: No Cancer: No Cardiac Disorders: No CVA: No COPD: No CHF: No Dementia: No Diabetes: Yes GI Disorders: Yes (COLITIS) Disorders: No HTN: Yes Hypercholesterolemia: Yes Liver Disease: No Seizures: No Thyroid Disease: Yes (HYPO) - Surgical History Abdominal Surgery: No Appendectomy: No Cardiac Surgery: Yes (stent placed 4 months ago) Cholecystectomy: No Lung Surgery: No Neurologic Surgery: No Orthopedic Surgery: No - Psycho-Social/Smoking History Smoking Status: No Smoking History: Never smoked Have you smoked in the past 12 months: No Number of Cigarettes Smoked Daily: 0 Information on smoking cessation initiated: No - Substance Abuse Hx (Audit-C & DAST Scrn) How often the patient has a drink containing alcohol: Never Score: In Men: 4 or > Positive; In Women: 3 or > Positive: 0 Screen Result (Pos requires Nsg. Audit-10AR): Negative In the last yr the pt used illegal drug/Rx for NonMed reason: No Score: Yes response is considered Positive: 0 Screen Result (Positive result requires Nsg. DAST-10): Negative *Physical Exam - Vital Signs Last Vital Signs Temp Pulse Resp BP Pulse Ox 98.1 F 62 18 118/68 100 10/11/19 03:00 10/11/19 03:00 10/11/19 03:00 10/11/19 03:00 10/11/19 03:00 Heart Score/ECG Review - History History: Slightly suspicious - Electrocardiogram EKG: Normal - Age Age: 45-65 - Risk Factors Risk Factors Heart Score: Yes Hx Hypertension, Yes Hx Diabetes, Yes Positive family hx of cardiac disease Based on the list above the patient has:: >/=3 risk factors or Hx atherosclerotic disease - Troponin Troponin: </= normal limit - Score Heart Score - Total: 3 ED Treatment Course - LABORATORY CBC & Chemistry Diagram: 10/11/19 04:05 10/11/19 04:05 - RADIOLOGY Radiology Studies Ordered: Category Date Time Status CHEST X-RAY PORTABLE* [RAD] Stat Radiology 10/11/19 03:33 Ordered Medical Decision Making - Medical Decision Making 10/11/19 04:37 54y/o M hx of UC, HTN, IDDM, CAD s/p stent (2018), HLD, UC presents to the ED with 1-2 wks of chest pain. pt states this episodes are intermittent and last about 10-15 minutes. ddx: acs, pneumonia (less likely aortic dissection, pneumothorax, pulmonary embolism) workup: labs ekg, cxr aspirin 324 po to chew. 10/11/19 04:39 EKG: nsr, LAD, at and pr intervals wnl, qrs duration wnl, no st elevations on comparison to ekg from 03/2019, bradycardia not noted on todays's ekg. HEART score 3 10/11/19 05:48 first troponin, negative, will repeat at 7:05 10/11/19 06:40 10/11/19 06:53 signed out to day team Discharge - Discharge Information Problems reviewed: Yes Clinical Impression/Diagnosis: Chest pain at rest, Chest pain, Acute coronary syndrome Condition: Fair Disposition: AGAINST MEDICAL ADVICE - Follow up/Referral Referrals: Sudhir Looney MD [Primary Care Provider] - - Patient Discharge Instructions Patient Printed Discharge Instructions: DI for Atypical Chest Pain, DI for Chest Pain Additional Instructions: You came to the hospital for chest pain. You are leaving against medical advice. With this you agree you are of sound and are capable to make your own decisions. We wanted to admit you for a further work up, but you wanted to leave. You understand the risk of possible myocardial infarction, coma, cardiopulmonary arrest, , stroke, infection, bleed, and more. 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 If you have any of the following symptoms please return: - worsening chest pain - shortness of breath - any emergent symptoms If you have any emergent symptoms please call for medical help right away. - Post Discharge Activity
--- NOTE | 2019-10-11 03:55 | PDOC ---
Attending Attestation - Resident Resident Name: Clayton Roberson - ED Attending Attestation I have performed the following: I have examined & evaluated the patient, The case was reviewed & discussed with the resident, I agree w/resident's findings & plan - HPI HPI: 10/11/19 04:36 hx of UC, HTN, DM, CAD s/p 1Xstent, and HLD pr 10/11/19 04:48 54y/o M hx of UC, HTN, IDDM, CAD s/p stent (2019), HLD, UC presents to the ED with 1-2 wks of chest pain. pt states this episodes are intermittent and last about 10-15 minutes. This episode started at around 3 a.m. pain is left sided and reports associated numbness of his left arm. No exacerbating or relieving factors. and no associated shortness of breath. Pt does not have a hx of clots. Pt denies any nausea, vomititing , diaphoresis, fevers, chills, cough, hemoptyis, lightheadeness, weakness or unilateral leg swelling or abdominal pain. 10/11/19 05:26 PT HAS MULTIPLE RISK FACTORS; HE COMES TODAY BECAUSE AT 2AM \HE HAD A DIFFERENT KIND OF CHEST PAIN - Physicial Exam PE: 10/11/19 04:48 normal exam; agree with resident exam - Medical Decision Making 10/11/19 04:48 PT WILL GET A 2ND BLOOD CARDIAC ENZYME IF NORMAL THEN: Home with cardiology follow up Heart Score/ECG Review - ECG Intrepretation Rhythm: Regular Rhythm - [place]: Normal - P and [place] Prominent R with upright T in V1 (true posterior SD): No Delta Wave(s) Present: No WPW: No - QRS Poor R Wave Progression: No Q Wave Present: No - ST and T Early Repolarization: No Non Specific ST-T Wave changes: No - ECG Impressions Normal ECG: Yes Non-specific ST Elevation: No Ischemic Changes: No Bradycardia: No Discharge - Discharge Information Problems reviewed: Yes Clinical Impression/Diagnosis: Chest pain at rest Condition: Fair - Follow up/Referral Referrals: Sudhir Looney MD [Primary Care Provider] - - Patient Discharge Instructions - Post Discharge Activity
[2019-10-11 04:28] LABS: BASO % 1.2 % (0-2.0); EOS % 1.1 % (0-4.5); HEMOGLOBIN 10.7 GM/dL (11.7-16.9); MCH 37.7 pg (25.7-33.7); MCHC 34.4 g/dl (32.0-35.9); MEAN CELL VOLUME 109.7 fl (80-96); MEAN PLT VOLUME 8.6 fl (7.5-11.1); MONO % 3.8 % (3.8-10.2); NEUT % 62.9 % (42.8-82.8); PLATELET COUNT 174 K/MM3 (134-434); RBC 2.83 M/mm3 (4.00-5.60); RDW 15.1 % (11.9-15.9); WHITE BLOOD COUNT 2.9 K/mm3 (4.0-10.0)
[2019-10-11] MEDS ORDERED: ASPIRIN 81 MG CHEWABLE TABLETS PO ONE (04:29)
[2019-10-11 04:36] LABS: INR 1.08 (0.83-1.09); PROTHROMBIN TIME (PATIENT) 12.8 SEC (9.7-13.0)
[2019-10-11 04:39] LABS: ACTIVATED PTT 35.5 SECONDS (25.2-36.5)
[2019-10-11 04:46] LABS: ALBUMIN 3.5 g/dl (3.4-5.0); ALK PHOS 89 U/L (45-117); ANION GAP 5 MMOL/L (8-16); BILIRUBIN,TOTAL 0.7 mg/dL (0.2-1); BLOOD UREA NITROGEN 12.6 mg/dL (7-18); CALCIUM 8.7 mg/dL (8.5-10.1); CHLORIDE 104 mmol/L (98-107); CO2 29 mmol/L (21-32); GLUCOSE,RANDOM 180 mg/dL (74-106); POTASSIUM 3.7 mmol/L (3.5-5.1); SGOT/AST 24 U/L (15-37); SGPT/ALT 28 U/L (13-61); SODIUM 139 mmol/L (136-145); TOT PROT 6.4 g/dl (6.4-8.2)
[2019-10-11] MEDS ORDERED: ASPIRIN 81 MG CHEWABLE TABLETS ONE (04:51)
[2019-10-11 05:51] LABS: MACROCYTOSIS 1+; OVALOCYTE 1+; PLATELET ESTIMATE ADEQUATE; TEAR DROP CELLS 1+
--- NOTE | 2019-10-11 06:58 | PDOC ---
*Physical Exam - Vital Signs Last Vital Signs Temp Pulse Resp BP Pulse Ox 98.1 F 53 L 17 109/93 97 10/11/19 03:00 10/11/19 06:21 10/11/19 06:21 10/11/19 06:21 10/11/19 06:21 - Physical Exam 10/11/19 18:57 PE: GENERAL: Awake, alert, and fully oriented, in no acute distress HEAD: No signs of trauma, normocephalic, atraumatic EYES: PERRLA, EOMI, sclera anicteric, conjunctiva clear ENT: Auricles normal inspection, hearing grossly normal, nares patent, oropharynx clear without exudates. Moist mucosa NECK: Normal ROM, supple, no lymphadenopathy, JVD, or masses LUNGS: No distress, speaks full sentences, clear to auscultation bilaterally HEART: Regular rate and rhythm, normal S1 and S2, no murmurs, rubs or gallops, peripheral pulses normal and equal bilaterally. ABDOMEN: Soft, nontender, normoactive bowel sounds. No guarding, no rebound. No masses EXTREMITIES : Normal inspection, Normal range of motion, trace edema to calves bilaterally . No clubbing or cyanosis NEUROLOGICAL: Cranial nerves II through XII grossly intact. Normal speech, normal gait, no focal sensorimotor deficits SKIN: Warm, Dry, normal turgor, no rashes or lesions noted ED Treatment Course - LABORATORY CBC & Chemistry Diagram: 10/11/19 04:05 10/11/19 04:05 - ADDITIONAL ORDERS Additional order review: Laboratory Results 10/11/19 10/11/19 10/11/19 06:00 04:05 04:05 PT with INR 12.80 INR 1.08 PTT (Actin FS) 35.5 Sodium 139 Potassium 3.7 Chloride 104 Carbon Dioxide 29 Anion Gap 5 L BUN 12.6 Creatinine 1.0 Est GFR (CKD-EPI)AfAm 97.77 Est GFR (CKD-EPI)NonAf 84.35 Random Glucose 180 H Calcium 8.7 Total Bilirubin 0.7 AST 24 ALT 28 Alkaline Phosphatase 89 Creatine Kinase 264 Creatine Kinase Index 0.4 CK-MB (CK-2) 1.3 Troponin I < 0.02 < 0.02 Total Protein 6.4 Albumin 3.5 10/11/19 04:05 RBC 2.83 L MCV 109.7 H MCHC 34.4 RDW 15.1 MPV 8.6 Neutrophils % 62.9 Lymphocytes % 31.0 D Monocytes % 3.8 Eosinophils % 1.1 Basophils % 1.2 - Medications Given in the ED: ED Medications Discontinued Medications Generic Name Dose Route Start Last Admin Trade Name Sylvie PRN Reason Stop Dose Admin Aspirin 324 mg 10/11/19 04:29 10/11/19 04:55 Asa - PO 10/11/19 04:30 324 mg ONCE ONE Administration Medical Decision Making - Medical Decision Making 10/11/19 06:57 Pt was signed out by PM team. 54 yo female with HTN, CAD, stent last year, DM presents to ED with chest pain that started at 3 am. Pt Heart score is a 3 first trop and ekg were negative. Rule out ACS with second trop at 7:05. If tronponin negative discharge home with cardiology follow up. 10/11/19 07:34 Due to significant comorbidiities and story of chest pain that is similar to prior stent the AM decided to admit pt to telemetry. Pt refused admission if troponin level were negative. Pt is of sound mind and has full capacity to make decision. Pt understands risks to signing out AMA which includes but not limited to permanent disability, myocardial infarction, coma, loss of function, cardiopulmonary arrest, neurological disability, pulmonary embolism, stroke, bl eeding, infection, and . Pt understands risks and would still lke to leave AMA. Will wait for last troponin level to come back and give AMA papers to sign. Discharge - Discharge Information Problems reviewed: Yes Clinical Impression/Diagnosis: Chest pain at rest, Chest pain, Acute coronary syndrome Condition: Fair Disposition: AGAINST MEDICAL ADVICE - Follow up/Referral Referrals: Sudhir Looney MD [Primary Care Provider] - - Patient Discharge Instructions Patient Printed Discharge Instructions: DI for Atypical Chest Pain, DI for Chest Pain Additional Instructions: You came to the hospital for chest pain. You are leaving against medical advice. With this you agree you are of sound and are capable to make your own decisions. We wanted to admit you for a further work up, but you wanted to leave. You understand the risk of possible myocardial infarction, coma, cardiopulmonary arrest, , stroke, infection, bleed, and more. Please atleast follow up with your productivity engineer within the next few days. If you have any of the following symptoms please return: - worsening chest pain - shortness of breath - any emergent symptoms If you have any emergent symptoms please call for medical help right away. - Post Discharge Activity
[2019-10-11 09:13] VITALS: BP 119/88; PULSE 70; TEMP 98.4
--- NOTE | 2019-10-11 09:53 | EKG ---
Test Reason : Blood Pressure : / mmHG Vent. Rate : 063 BPM Atrial Rate : 063 BPM P-R Int : 138 ms QRS Dur : 106 ms QT Int : 442 ms P-R-T Axes : 068 -28 008 degrees QTc Int : 452 ms NORMAL SINUS RHYTHM NORMAL ECG WHEN COMPARED WITH ECG OF 01-APR-2019 09:17, NO SIGNIFICANT CHANGE WAS FOUND Confirmed by Flower Bowie ([id number]) on 10/11/2019 9:53:15 AM Referred By: Confirmed By:Flower Bowie
== END 2019-10-11 09:11 | disposition left against medical advice (07) ==
LOC: JER 02:59
DX: R07.89 Other chest pain (principal)
CPT/HCPCS: 36415; 71045-TC-FY; 80053; 82550; 82553; 84484; 85025; 85610; 85730; 93005; 93010; 99285-25

== ENCOUNTER 2020-01-12 18:00 | Observation (INO) | payer OTHER ==
--- NOTE | 2020-01-12 18:19 | PDOC ---
Rapid Medical Evaluation Chief Complaint: Chest Pain Time Seen by Provider: 01/12/20 18:16 Medical Evaluation: Allergies Allergy/AdvReac Type Severity Reaction Status Date / Time No Known Allergies Allergy Verified 10/11/19 03:31 01/12/20 18:18 CC: chest tightness and heaviness to left chest since last night, hx of ID, no smoking/drugs Exam: vss, no reproducible cp Plan: cardiac w/u Discharge Disposition - Diagnosis Chest pain - Referrals - Patient Instructions - Post Discharge Activity
[2020-01-12 18:24] VITALS: BMI 27.6
--- OUTSIDE RECORDS SUMMARY | 2020-01-12 18:24 | XMS ---
:1965 Author Organization [facility] Care Team Providers Name Role Phone [facility], HDSW9 Unavailable Unavailable GRAVES ALANIS W Unavailable Unavailable ED STAFF PHYSICIAN, STAFF Unavailable Unavailable VENKATESH CARLOS Unavailable Unavailable Re-disclosure Warning The records that you are about to access may contain information from federally- assisted alcohol or drug abuse programs. If such information is present, then the following federally mandated warning applies: This information has been disclosed to you from records protected by federal confidentiality rules (42 CFR part 2). The federal rules prohibit you from making any further disclosure of this information unless further disclosure is expressly permitted by the written consent of the person to whom it pertains or as otherwise permitted by 42 CFR part 2. A general authorization for the release of medical or other information is NOT sufficient for this purpose. The Federal rules restrict any use of the information to criminally investigate or prosecute any alcohol or drug abuse patient.The records that you are about to access may contain highly sensitive health information, the redisclosure of which is protected by Article 27-F of the [place] State Public Health law. If you continue you may haveaccess to information: Regarding HIV / AIDS; Provided by facilities licensed or operated by the [facility] Office of Mental Health; or Provided by the [facility] Office for People With Developmental Disabilities. If such information is present, then the following [facility] mandated warning applies: This information has been disclosed to you from confidential records which are protected by state law. State law prohibits you from making any further disclosure of this information without the specific written consent of the person to whom it pertains, or as otherwise permitted by law. Any unauthorized further disclosure in violation of state law may result in a fine or fpc sentence or both. A general authorization for the release of medical or other information is NOT sufficient authorization for further disclosure. Encounters Encounter Providers Location Date Indications Data Source(s ) Outpatient Attender: [id number] 12/13/2019 [facility] ([facility] 03:33:48 PM Care [facility]) EDT Patient admitted. Outpatient Attender: [facility] 10/09/2019 11:19:46 AM [facility] ([facility]) Patient admitted. Outpatient Attender: [address] 04/27/2019 11:48:27 AM [facility] ([facility]) Patient admitted. Emergency Attender: ADDISON Brian 04/17/2019 05:15:00 PM [facility] ST[facility]FF ED STAFF EST - 04/17/2019 [facility] PHYSICIANAdmitter: ADDISON 07:36:00 PM EST ALANIS W Patient discharged. 04/17/2019 12:00:00 AM [facility] - 05/07[facility] 12:00:00 Center AM EST Emergency Attender: VENKATESH CASTANON H-HAL6 11/26/2018 10:43:00 AM [facility] Y EDT - 11/28/2018 07:59:00 [place] PM EDT Patient discharged. Emergency H 11/22/2018 04:08:00 PM EDT - 019 [facility] 07:22:00 PM EDT Patient discharged. Insurance Providers Payer name Policy type Policy ID Covered Covered constitution party's Policy P jigna / Coverage constitution party ID relationship to [place] [employer] type [place] MEDICARE [id number] SP [id number] VIP MEDICAID [id number] SP [id number] O [id number] HIP O [id number] [place] O [id number] HEALTHCARE [place] [id number] SP [id number] COMPLETE W [id number] [place] MEDICARE [id number] SP [id number] [place] [address] 01 [facility] Problems, Conditions, and Diagnoses Code Display Name Description Problem Type Effective Data Dates Source(s) I10 Essential (primary) ESSENTIAL Diagnosis 04/17/2019 [facility] hypertension (PRIMARY) 05:15:00 PM Medical HYPERTENSION EST Center E11.9 Type 2 diabetes TYPE 2 DIABETES Diagnosis 04/17/2019 [facility] mellitus without MELLITUS WITHOUT 05:15:00 PM edical complications COMPLICATIONS EST Center M79.602 Pain in left arm PAIN IN LEFT ARM Diagnosis 04/17/2019 [facility] 05:15:00 PM Medical EST Center Z95.5 Presence of coronary PRESENCE OF Diagnosis 11/26/2018 [facility] angioplasty implant CORONARY 10:43:00 AM [facility] elva and graft ANGIOPLASTY EDT Center IMPLANT AND GRAFT I25.10 Atherosclerotic ATHSCL HEART Diagnosis 11/26/2018 [facility] heart disease of DISEASE OF [place] 10:43:00 AM Medical [place] coronary CORONARY ARTERY EDT [facility] er artery without W/O ANG PCTRS angina pectoris B00.1 Herpesviral HERPESVIRAL Diagnosis 11/26/2018 [facility] vesicular dermatitis VESICULAR 10:43:00 AM Med ical DERMATITIS EDT Center D72.819 Decreased white DECREASED WHITE Diagnosis 11/26/2018 [facility] blood cell count, BLOOD CELL COUNT, 10:43:00 AM Medical unspecified UNSPECIFIED EDT Center L73.9 Follicular disorder, FOLLICULAR Diagnosis 11/22/2018 [facility] unspecified DISORDER, 04:08:00 PM Medical UNSPECIFIED EDT Center H66.92 Otitis media, OTITIS MEDIA, Diagnosis 11/22/2018 [facility] unspecified, left UNSPECIFIED, LEFT 04:08:00 PM Medical ear EAR EDT Center H92.09 Otalgia, unspecified OTALGIA, Diagnosis 11/22/2018 [facility] ear UNSPECIFIED EAR 04:08:00 PM Medical EDT Center Results ID Date Data Source [id number] 11/05/2019 12:00:00 AM EDT [facility] Name Value Range Interpretation Code Description Data Angélica rce(s) Supporting Document(s ) SARS-CoV-2 [facility] BY PCR This lab was ordered by SHIRA Dsouza and reported by Rudder. ID Date Data Source Liver 11/27/2018 05:15:00 AM EDT [facility] Profile.[id number] Name Value Range Interpretation Description Data Sup porting Code Source(s) Document(s ) Alkaline 38-126 <content [facility] phosphatase styleCode="Bold"> [facility] [Enzymatic Alkaline Medical activity/volume] Phosphatase (ALP) Cente r in Serum or Plasma </content>69 IU/L<content styleCode="Italic s"> (38-126 IU/L)</content> Alanine 7-50 <content [facility] aminotransferase styleCode="Bold"> [facility] [Enzymatic Alanine Medical activity/volume] Aminotransferase Center in Serum or Plasma (ALT) </content>38 IU/L<content styleCode="Italic s"> (7-50 IU/L)</content> Aspartate 17-59 <content [facility] aminotransferase styleCode="Bold"> [facility] [Enzymatic Aspartate Medical activity/volume] Aminotransferase Center in Serum or Plasma (AST) </content>29 IU/L<content styleCode="Italic s"> (17-59 IU/L)</content> Bilirubin.total 0.2-1.3 <content [facility] [Mass/volume] in styleCode="Bold"> [facility] Serum or Plasma Bilirubin Total Medical </content>0.9 Center MG/DL<content styleCode="Italic s"> (0.2-1.3 MG/DL)</content> Albumin 3.5-5.0 <content [facility] [Mass/volume] in styleCode="Bold"> [facility] Serum or Plasma Albumin Medical </content>3.9 Center G/DL<content styleCode="Italic s"> (3.5-5.0 G/DL)</content> ID Date Data Source Hormones.[id number] 11/27/2018 05:15:00 AM [facility] Center Name Value Range Interpretation Description Data Sup porting Code Source(s) Document(s ) Thyrotropin 0.465-4. <content [facility] [Units/volume] 68 styleCode="Yes[place] in Serum or d">Thyroid Medical Plasma by Stimulating Center Detection Hormone limit <= 0.05 </content>1.77 mIU/L MIU/L<content styleCode="Jazmine lics"> (0.465-4.68 MIU/L)</conten t> ID Date Data Source HematologyRou.[id number] 11/27/2018 05:15:00 AM EDT [facility] 0400 Name Value Range Interpretation Description Data Sup porting Code Source(s) Document(s ) Erythrocytes 4.4-5.9 Below low normal <content [facility] [#/volume] in styleCode="Bold [place] Blood by ">Red Blood Medical Automated count Cell Count Center </content>3.40 MCUMM L<content styleCode="Ital ics"> (4.4-5.9 MCUMM)</content > Hemoglobin 13.5-17. Below low normal <content [facility] [Mass/volume] in 5 styleCode="Bold [place] Blood ">Hemoglobin Medical </content>11.8 Center G/DL L<content styleCode="Ital ics"> (13.5-17.5 G/DL)</content> Hematocrit 41.0-53. Below low normal <content [facility] [Volume 0 styleCode="Bold [facility] Fraction] of ">Hematocrit Medical Blood by </content>33.6 Center Automated count % L<content styleCode="Ital ics"> (41.0-53.0 %)</content> Leukocytes 4.4-11.0 Below low normal <content [facility] [#/volume] in styleCode="Bold [place] Blood by ">White Blood Medical Automated count Cell Count Center </content>2.79 KCUMM L<content styleCode="Ital ics"> (4.4-11.0 KCUMM)</content > Erythrocyte 11.5-14. <content [facility] distribution 5 styleCode="Bold [facility] width [Ratio] by ">Red Cell Medical Automated count Distribution Center Width </content>13.0 %<content styleCode="Ital ics"> (11.5-14.5 %)</content> Erythrocyte mean 26.0-34. Above high <content [facility] corpuscular 0 normal styleCode="Bold [place] hemoglobin ">Mean Medical [Entitic mass] Corposcular Center by Automated Hemoglobin count </content>34.7 PG H<content styleCode="Ital ics"> (26.0-34.0 PG)</content> Erythrocyte mean 32.0-37. <content [facility] corpuscular 0 styleCode="Bold [place] hemoglobin ">Mean Corpus. Medical concentration Hgb Center [Mass/volume] by Concentration Automated count (MCHC) </content>35.1 G/DL<content styleCode="Ital ics"> (32.0-37.0 G/DL)</content> Platelets 130-400 <content [facility] [#/volume] in styleCode="Bold [place] Blood by ">Platelet Medical Automated count Count Center </content>150 KCUMM<content styleCode="Ital ics"> (130-400 KCUMM)</content > Erythrocyte mean 80.0-100 <content [facility] corpuscular .0 styleCode="Bold [place] volume [Entitic ">Mean Medical volume] by Corpuscular Center Automated count Volume </content>98.8 FL<content styleCode="Ital ics"> (80.0-100.0 FL)</content> Lymphocytes 24.0-44. Below low normal <content [facility] [#/volume] in 0 styleCode="Bold [place] Blood by ">Lymphocyte Medical Automated count </content>20.8 Center % L<content styleCode="Ital ics"> (24.0-44.0 %)</content> UNK 1.6-7.3 <content [facility] styleCode="Bold [place] ">Neutrophil Medical Count Center </content>1.93 KCUMM<content styleCode="Ital ics"> (1.6-7.3 KCUMM)</content > Neutrophils 36-66 Above high <content [facility] [#/volume] in normal styleCode="Bold [place] Blood by ">Neutrophil Medical Automated count </content>69.1 Center % H<content styleCode="Ital ics"> (36-66 %)</content> UNK 1.0-4.8 Below low normal <content [facility] styleCode="Bold [place] ">Lymphocyte Medical Count Center </content>0.58 KCUMM L<content styleCode="Ital ics"> (1.0-4.8 KCUMM)</content > Platelet mean 8.0-11.0 Above high <content [facility] volume [Entitic normal styleCode="Bold [place] volume] in Blood ">Mean Platelet Medical by Automated Volume Center count </content>11.2 FL H<content styleCode="Ital ics"> (8.0-11.0 FL)</content> Monocytes 3.0-10.0 <content [facility] [#/volume] in styleCode="Bold [place] Blood by ">Monocyte Medical Automated count </content>7.9 Center %<content styleCode="Ital ics"> (3.0-10.0 %)</content> UNK 0.0-0.6 <content [facility] styleCode="Bold [place] ">Eosinophil Medical Count Center </content>0.03 KCUMM<content styleCode="Ital ics"> (0.0-0.6 KCUMM)</content > Eosinophils 0-5.0 <content [facility] [#/volume] in styleCode="Bold [place] Blood by ">Eosinophil Medical Automated count </content>1.1 Center %<content styleCode="Ital ics"> (0-5.0 %)</content> UNK 0.2-0.9 <content [facility] styleCode="Bold [place] ">Monocyte Medical Count Center </content>0.22 KCUMM<content styleCode="Ital ics"> (0.2-0.9 KCUMM)</content > UNK 0.0 <content [facility] styleCode="Bold [place] ">Nucleated Red Medical Blood Cell Center Count </content>0.00 KCUMM<content styleCode="Ital ics"> (0.0 KCUMM)</content > UNK 0 <content [facility] styleCode="Bold [place] ">Nucleated Red Medical Blood Cell Center </content>0.0 /100<content styleCode="Ital ics"> (0 /100)</content> UNK 0.0-0.3 <content [facility] styleCode="Bold [place] ">Basophil Medical Count Center </content>0.02 KCUMM<content styleCode="Ital ics"> (0.0-0.3 KCUMM)</content > Basophils 0.0-1.0 <content [facility] [#/volume] in styleCode="Bold [facility] Blood by ">Basophil Medical Automated count </content>0.7 Center %<content styleCode="Ital ics"> (0.0-1.0 %)</content> UNK 0-0.1 <content [facility] styleCode="Bold [place] ">Immature Medical Granulocyte Center Count </content>0.01 KCUMM<content styleCode="Ital ics"> (0-0.1 KCUMM)</content > UNK < 1 <content [facility] styleCode="Bold [place] ">Immature Medical Granulocyte Center Ratio </content>0.4 %<content styleCode="Ital ics"> (< 1 %)</content> ID Date Data Source GFR(Creatinine).[id number] 11/27/2018 05:15:00 AM EDT [facility] 0-0400 Name Value Range Interpretation Code Description Data Angélica rce(s) Supporting Document(s ) UNK > 60 <content [facility] styleCode="Bold"> Medical Cent er EGFR </content>100 GFR<content styleCode="Italic s"> (> 60 GFR)</content> ID Date Data Source CHMROUTINECCDA.[id number] 11/27/2018 05:15:00 AM EDT [facility] -0400 Name Value Range Interpretation Description Data Sup porting Code Source(s) Document(s ) UNK 2.3-3.5 <content [facility] styleCode="Bold Medical ">Globulin Center </content>2.5 G/DL<content styleCode="Ital ics"> (2.3-3.5 G/DL)</content> UNK >= 1.0 <content [facility] styleCode="Bold Medical ">AG Ratio Center </content>1.6 <content styleCode="Ital ics"> (>= 1.0 )</content> UNK 4.2-5.8 Above high normal <content [facility] styleCode="Bold Medical ">Hemoglobin Center A1C </content>6.2 % H<content styleCode="Ital ics"> (4.2-5.8 %)</content> Protein 6.3-8.2 <content [facility] [place] [Mass/volum styleCode="Bold Medical e] in Serum ">Total Protein Center or Plasma </content>6.4 G/DL<content styleCode="Ital ics"> (6.3-8.2 G/DL)</content> ID Date Data Source [facility].[id number] 11/27/2018 05:15:00 AM EDT [facility] Center Name Value Range Interpretation Description Data Sup porting Code Source(s) Document(s ) Chloride 98-107 <content [facility] [Moles/volume] in styleCode="Bold"> Shira phs Serum or Plasma Chloride Medical </content>103 Center MEQ/L<content styleCode="Italic s"> (98-107 MEQ/L)</content> Sodium 137-145 <content [facility] [Moles/volume] in styleCode="Bold"> Shira [facility] Serum or Plasma Sodium Medical </content>138 Center MEQ/L<content styleCode="Italic s"> (137-145 MEQ/L)</content> Potassium 3.5-5.3 <content [facility] [Moles/volume] in styleCode="Bold"> Shira [facility] Serum or Plasma Potassium Medical </content>3.8 Center MEQ/L<content styleCode="Italic s"> (3.5-5.3 MEQ/L)</content> Carbon dioxide, 22-30 Above high <content [facility] total normal styleCode="Bold"> [place] [Moles/volume] in Carbon Dioxide Medical Serum or Plasma </content>31 Center MEQ/L H<content styleCode="Italic s"> (22-30 MEQ/L)</content> UNK > 60 <content [facility] styleCode="Bold"> [place] EGFR Medical </content>100 Center GFR<content styleCode="Italic s"> (> 60 GFR)</content> Glucose 74-106 Above high <content [facility] [Mass/volume] in normal styleCode="Bold"> [facility] Serum or Plasma Glucose Medical </content>219 Center MG/DL H<content styleCode="Italic s"> (74-106 MG/DL)</content> Creatinine 0.5-1.3 <content [facility] [Mass/volume] in styleCode="Bold"> [facility] Serum or Plasma Creatinine Medical </content>1.0 Center MG/DL<content styleCode="Italic s"> (0.5-1.3 MG/DL)</content> Aspartate 17-59 <content [facility] aminotransferase styleCode="Bold"> [facility] [Enzymatic Aspartate Medical activity/volume] Aminotransferase Center in Serum or Plasma (AST) </content>29 IU/L<content styleCode="Italic s"> (17-59 IU/L)</content> UNK 9-20 <content [facility] styleCode="Bold"> [place] BUN </content>16 Medical MG/DL<content Center styleCode="Italic s"> (9-20 MG/DL)</content> Calcium 8.4-10. <content [facility] [Mass/volume] in 2 styleCode="Bold"> [facility] Serum or Plasma Calcium Medical </content>9.3 Center MG/DL<content styleCode="Italic s"> (8.4-10.2 MG/DL)</content> Alkaline 38-126 <content [facility] phosphatase styleCode="Bold"> [place] [Enzymatic Alkaline Medical activity/volume] Phosphatase (ALP) Cente r in Serum or Plasma </content>69 IU/L<content styleCode="Italic s"> (38-126 IU/L)</content> Bilirubin.total 0.2-1.3 <content [facility] [Mass/volume] in styleCode="Bold"> [facility] Serum or Plasma Bilirubin Total Medical </content>0.9 Center MG/DL<content styleCode="Italic s"> (0.2-1.3 MG/DL)</content> Albumin 3.5-5.0 <content [facility] [Mass/volume] in styleCode="Bold"> [facility] Serum or Plasma Albumin Medical </content>3.9 Center G/DL<content styleCode="Italic s"> (3.5-5.0 G/DL)</content> Alanine 7-50 <content [facility] aminotransferase styleCode="Bold"> [facility] [Enzymatic Alanine Medical activity/volume] Aminotransferase Center in Serum or Plasma (ALT) </content>38 IU/L<content styleCode="Italic s"> (7-50 IU/L)</content> ID Date Data Source Urinalysis.[id number] 11/26/2018 01:10:00 PM EDT [facility] 0 Name Value Range Interpretation Description Data Sup porting Code Source(s) Document(s ) Ketones NEGATIVE <content [facility] [Mass/volume] styleCode="Yes[place] in Urine by d">Urine Medical Test strip Ketone Center </content>NEGA TIVE MG/DL<content styleCode="Jazmine lics"> (NEGATIVE MG/DL)</conten t> Color of Urine YELLOW <content [facility] styleCode="[place] d">Color, Medical Urine Center </content>YELL OW <content styleCode="Jazmine lics"> (YELLOW )</content> Glucose NEGATIVE <content [facility] [Mass/volume] styleCode="[place] in Urine by d">Urine Medical Test strip Glucose Center </content>>=10 00 MG/DL<content styleCode="Jazmine lics"> (NEGATIVE MG/DL)</conten t> UNK NEGATIVE <content [facility] styleCode="[place] d">Urine Medical Bilirubin Center </content>NEGA TIVE <content styleCode="Jazmine lics"> (NEGATIVE )</content> UNK CLEAR <content [facility] styleCode="[place] d">Urine Medical Clarity Center </content>LUISITO R <content styleCode="Jazmine lics"> (CLEAR )</content> pH of Urine by 4.5-8.0 <content [facility] Test strip styleCode="[place] d">Urine pH Medical </content>6.0 Center <content styleCode="Jazmine lics"> (4.5-8.0 )</content> Protein NEGATIVE <content [facility] [Mass/volume] styleCode="[place] in Urine by d">Urine Medical Test strip Protein Center </content>NEGA TIVE MG/DL<content styleCode="Jazmine lics"> (NEGATIVE MG/DL)</conten t> Hemoglobin NEGATIVE <content [facility] [Presence] in styleCode="Yesenia [place] Urine by Test d">Urine Blood Medical strip </content>TRAC Center E <content styleCode="Jazmine lics"> (NEGATIVE )</content> Specific 1.015-1.02 Below low normal <content [facility] gravity of 5 styleCode="Yesenia [place] Urine by Test d">Urine Medical strip Specific Center [place] </content>1.01 0 L<content styleCode="Jazmine lics"> (1.015-1.025 )</content> Leukocyte NEGATIVE <content [facility] esterase styleCode="Yesenia [place] [Presence] in d">Urine Medical Urine by Test Leukocyte Center strip </content>NEGA TIVE <content styleCode="Jazmine lics"> (NEGATIVE )</content> UNK 0-3 <content Saint styleCode="Yesenia [place] d">Urine Red Medical Blood Cell Center </content>0-3 HPF<content styleCode="Jazmine lics"> (0-3 HPF)</content> Nitrite NEGATIVE <content [facility] [Presence] in styleCode="Yesenia [place] Urine by Test d">Urine Medical strip Nitrite Center </content>NEGA TIVE <content styleCode="Jazmine lics"> (NEGATIVE )</content> Urobilinogen 0.2-1.0 <content [facility] [Units/volume] styleCode="Yesenia [place] in Urine by d">Urine Medical Test strip Urobilinogen Center </content>0.2 MG/DL<content styleCode="Jazmine lics"> (0.2-1.0 MG/DL)</conten t> ID Date Data Source Microbiology.[id number] 11/26/2018 01:00:00 PM EDT [facility] 400 Name Value Range Interpretation Code Description Data Angélica rce(s) Supporting Document(s ) UNK <item><content [facility] styleCode="Bold"> Medical Cent er Culture Report </content>
<t able><tbody><tr>< td>Specimen Number:</td><td>[id number]</td></tr ><tr><td>Sample Collection Date/Time: </td><td> 9 1:00 PM</td></tr><tr>< td>Specimen Source:</td><td>E AR</td></tr><tr>< td>Gram Stain:</td><td>RA RE GRAM NEGATIVE BACILLI </td></tr><tr><td >Wound Culture:</td><td> Collection Plate Date: 11/26/2018 13:06 </td></tr><tr><td >Culture Status:</td><td>F inal </td></tr><tr><td >Culture Report:</td><td>N O GROWTH </td></tr></tbody ></table></item> UNK <item><content [facility] styleCode="Bold"> Medical [facility] er Culture Status </content>
<t able><tbody><tr>< td>Specimen Number:</td><td>[id number]</td></tr ><tr><td>Sample Collection Date/Time: </td><td> 9 1:00 PM</td></tr><tr>< td>Specimen Source:</td><td>E AR</td></tr><tr>< td>Culture Status:</td><td>F inal </td></tr><tr><td >Culture Report:</td><td>N O GROWTH </td></tr><tr><td >Wound Culture:</td><td> Collection Plate Date: 11/26/2018 13:06 </td></tr><tr><td >Gram Stain:</td><td>RA RE GRAM NEGATIVE BACILLI </td></tr></tbody ></table></item> ID Date Data Source Coagulation 11/26/2018 12:53:00 PM [facility] Rout.[id number] EDT Name Value Range Interpretation Description Data Sup porting Code Source(s) Document(s ) UNK 9.0-13.0 Above high normal <content [facility] styleCode="Bold" [place] >Protime Medical </content>14.9 Center SEC H<content styleCode="Itali cs"> (9.0-13.0 SEC)</content> INR in 0.80-1.2 Above high normal <content [facility] Platelet poor 0 styleCode="Bold" [place] plasma by >INR Medical Coagulation </content>1.34 # Center assay H<content styleCode="Itali cs"> (0.80-1.20 #)</content> aPTT in 25.1-36. <content [facility] Platelet poor 5 styleCode="Bold" [place] plasma by >Partial Medical Coagulation Thromboplastin Center assay Time </content>35.3 SEC<content styleCode="Itali cs"> (25.1-36.5 SEC)</content> ID Date Data Source Microbiology.[id number] 11/26/2018 12:18:00 PM EDT [facility] 400 Name Value Range Interpretation Code Description Data Angélica rce(s) Supporting Document(s ) UNK <item><content [facility] styleCode="Bold"> Medical Cent er Culture Report </content>
<t able><tbody><tr>< td>Specimen Number:</td><td>[id number]</td></tr ><tr><td>Sample Collection Date/Time: </td><td> 9 12:18 PM</td></tr><tr>< td>Specimen Source:</td><td>B LOOD</td></tr><tr ><td>Blood Culture:</td><td> Collection Plate Date: 11/26/2018 12:28 </td></tr><tr><td >Culture Status:</td><td>P reliminary </td></tr><tr><td >Culture Report:</td><td>N O GROWTH AFTER 48 HOURS </td></tr></tbody ></table></item> UNK <item><content [facility] styleCode="Bold"> Medical [facility] er Culture Status </content>
<t able><tbody><tr>< td>Specimen Number:</td><td>[id number]</td></tr ><tr><td>Sample Collection Date/Time: </td><td> 12:18 PM</td></tr><tr>< td>Specimen Source:</td><td>B LOOD</td></tr><tr ><td>Culture Report:</td><td>N O GROWTH AFTER 48 HOURS </td></tr><tr><td >Culture Status:</td><td>P reliminary </td></tr><tr><td >Blood Culture:</td><td> Collection Plate Date: 11/26/2018 12:28 </td></tr></tbody ></table></item> ID Date Data Source HematologyRou.[id number] 11/26/2018 12:18:00 PM EDT [facility] 0400 Name Value Range Interpretation Description Data Sup porting Code Source(s) Document(s ) Leukocytes 4.4-11.0 Below low normal <content [facility] [#/volume] in styleCode="Bold [facility] Blood by ">White Blood Medical Automated count Cell Count Center </content>2.60 KCUMM L<content styleCode="Ital ics"> (4.4-11.0 KCUMM)</content > Erythrocytes 4.4-5.9 Below low normal <content [facility] [#/volume] in styleCode="Bold [place] [facility] by ">Red Blood Medical Automated count Cell Count Center </content>3.53 MCUMM L<content styleCode="Ital ics"> (4.4-5.9 MCUMM)</content > Hemoglobin 13.5-17. Below low normal <content [facility] [Mass/volume] in 5 styleCode="Bold [place] [facility] ">Hemoglobin Medical </content>12.3 Center G/DL L<content styleCode="Ital ics"> (13.5-17.5 G/DL)</content> Hematocrit 41.0-53. Below low normal <content [facility] [Volume 0 styleCode="[facility] [place] Fraction] of ">Hematocrit Medical Blood by </content>34.1 Center Automated count % L<content styleCode="Ital ics"> (41.0-53.0 %)</content> Erythrocyte mean 80.0-100 <content [facility] corpuscular .0 styleCode="Bold [place] volume [Entitic ">Mean Medical volume] by Corpuscular Center Automated count Volume </content>96.6 FL<content styleCode="Ital ics"> (80.0-100.0 FL)</content> Erythrocyte mean 26.0-34. Above high <content [facility] corpuscular 0 normal styleCode="Bold [place] hemoglobin ">Mean Medical [Entitic mass] Corposcular Center by Automated Hemoglobin count </content>34.8 PG H<content styleCode="Ital ics"> (26.0-34.0 PG)</content> Erythrocyte 11.5-14. <content [facility] distribution 5 styleCode="Bold [place] width [Ratio] by ">Red Cell Medical Automated count Distribution Center Width </content>13.2 %<content styleCode="Ital ics"> (11.5-14.5 %)</content> Platelets 130-400 <content [facility] [#/volume] in styleCode="Bold [place] [facility] by ">Platelet Medical Automated count Count Center </content>163 KCUMM<content styleCode="Ital ics"> (130-400 KCUMM)</content > Erythrocyte mean 32.0-37. <content [facility] corpuscular 0 styleCode="[facility] [place] hemoglobin ">Mean Corpus. Medical concentration Hgb Center [Mass/volume] by Concentration Automated count (MCHC) </content>36.1 G/DL<content styleCode="Ital ics"> (32.0-37.0 G/DL)</content> UNK 1.6-7.3 <content [facility] styleCode="[facility] [place] ">Neutrophil Medical Count Center </content>1.62 KCUMM<content styleCode="Ital ics"> (1.6-7.3 KCUMM)</content > Platelet mean 8.0-11.0 <content [facility] volume [Entitic styleCode="Bold [place] volume] in Blood ">Mean Platelet Medical by Automated Volume Center count </content>11.0 FL<content styleCode="Ital ics"> (8.0-11.0 FL)</content> Lymphocytes 24.0-44. <content [facility] [#/volume] in 0 styleCode="Bold [place] [facility] by ">Lymphocyte Medical Automated count </content>27.3 Center %<content styleCode="Ital ics"> (24.0-44.0 %)</content> UNK 1.0-4.8 Below low normal <content [facility] styleCode="[facility] [place] ">Lymphocyte Medical Count Center </content>0.71 KCUMM L<content styleCode="Ital ics"> (1.0-4.8 KCUMM)</content > Neutrophils 36-66 <content [facility] [#/volume] in styleCode="Bold [place] [facility] by ">Neutrophil Medical Automated count </content>62.3 Center %<content styleCode="Ital ics"> (36-66 %)</content> Monocytes 3.0-10.0 <content [facility] [#/volume] in styleCode="Bold [place] [facility] by ">Monocyte Medical Automated count </content>6.9 Center %<content styleCode="Ital ics"> (3.0-10.0 %)</content> UNK 0.0-0.6 <content [facility] styleCode="[facility] [place] ">Eosinophil Medical Count Center </content>0.05 KCUMM<content styleCode="Ital ics"> (0.0-0.6 KCUMM)</content > Eosinophils 0-5.0 <content [facility] [#/volume] in styleCode="Bold [place] [facility] by ">Eosinophil Medical Automated count </content>1.9 Center %<content styleCode="Ital ics"> (0-5.0 %)</content> Basophils 0.0-1.0 Above high <content [facility] [#/volume] in normal styleCode="Bold [place] [facility] by ">Basophil Medical Automated count </content>1.2 % Center H<content styleCode="Ital ics"> (0.0-1.0 %)</content> UNK 0.2-0.9 Below low normal <content [facility] styleCode="[facility] [place] ">Monocyte Medical Count Center </content>0.18 KCUMM L<content styleCode="Ital ics"> (0.2-0.9 KCUMM)</content > UNK 0 <content [facility] styleCode="[facility] [place] ">Nucleated Red Medical Blood Cell Center </content>0.0 /100<content styleCode="Ital ics"> (0 /100)</content> UNK 0-0.1 <content [facility] styleCode="[facility] [place] ">Immature Medical Granulocyte Center Count </content>0.01 KCUMM<content styleCode="Ital ics"> (0-0.1 KCUMM)</content > UNK 0.0-0.3 <content [facility] styleCode="[facility] [place] ">Basophil Medical Count Center </content>0.03 KCUMM<content styleCode="Ital ics"> (0.0-0.3 KCUMM)</content > UNK 0.0 <content [facility] styleCode="[facility] [place] ">Nucleated Red Medical Blood Cell Center Count </content>0.00 KCUMM<content styleCode="Ital ics"> (0.0 KCUMM)</content > UNK < 1 <content [facility] styleCode="[facility] [place] ">Immature Medical Granulocyte Center Ratio </content>0.4 %<content styleCode="Ital ics"> (< 1 %)</content> ID Date Data Source GFR(Creatinine).[id number] 11/26/2018 12:18:00 PM EDT [facility] 0-0400 Name Value Range Interpretation Code Description Data Angélica rce(s) Supporting Document(s ) UNK > 60 <content [facility] [place] styleCode="Bold"> Medical Cent er EGFR </content>100 GFR<content styleCode="Italic s"> (> 60 GFR)</content> ID Date Data Source LILIBETHMRYASIR.[id number] 11/26/2018 12:18:00 PM EDT [facility] -0400 Name Value Range Interpretation Description Data Sup porting Code Source(s) Document(s ) Lactate 0.7-2.0 <content [facility] [place] [Mass/volum styleCode="Bold Medical e] in Serum ">Lactic Acid Center or Plasma </content>1.0 MMOLL<content styleCode="Ital ics"> (0.7-2.0 MMOLL)</content > ID Date Data Source [facility].[id number] 11/26/2018 12:18:00 PM EDT [facility] Center Name Value Range Interpretation Description Data Sup porting Code Source(s) Document(s ) Potassium 3.5-5.3 <content [facility] [Moles/volume] styleCode="Yesenia [place] in Serum or d">Potassium Medical Plasma </content>4.3 Center MEQ/L<content styleCode="Jazmine lics"> (3.5-5.3 MEQ/L)</conten t> Carbon 22-30 <content [facility] dioxide, total styleCode="Yesenia [place] [Moles/volume] d">Carbon Medical in Serum or Dioxide Center Plasma </content>29 MEQ/L<content styleCode="Jazmine lics"> (22-30 MEQ/L)</conten t> Sodium 137-145 <content [facility] [Moles/volume] styleCode="Yesenia [place] in Serum or d">Sodium Medical Plasma </content>138 Center MEQ/L<content styleCode="Jazmine lics"> (137-145 MEQ/L)</conten t> Chloride 98-107 <content [facility] [Moles/volume] styleCode="Yesenia [place] in Serum or d">Chloride Medical Plasma </content>102 Center MEQ/L<content styleCode="Jazmine lics"> (98-107 MEQ/L)</conten t> UNK 9-20 <content styleCode="Yesenia [place] d">BUN Medical </content>18 Center MG/DL<content styleCode="Jazmine lics"> (9-20 MG/DL)</conten t> Calcium 8.4-10.2 <content [facility] [Mass/volume] styleCode="Yesenia [place] in Serum or d">Calcium Medical Plasma </content>9.4 Center MG/DL<content styleCode="Jazmine lics"> (8.4-10.2 MG/DL)</conten t> Creatinine 0.5-1.3 <content [facility] [Mass/volume] styleCode="Yesenia [place] in Serum or d">Creatinine Medical Plasma </content>1.0 Center MG/DL<content styleCode="Jazmine lics"> (0.5-1.3 MG/DL)</conten t> UNK > 60 <content styleCode="Yesenia Delarosa d">EGFR Medical </content>100 Center GFR<content styleCode="Jazmine lics"> (> 60 GFR)</content> Glucose 74-106 Above high normal <content [facility] [Mass/volume] styleCode="Yesenia Delar[place] in Serum or d">Glucose Medical Plasma </content>322 Center MG/DL H<content styleCode="Jazmine lics"> (74-106 MG/DL)</conten t> ID Date Data Source Microbiology.[id number] 11/26/2018 12:00:00 PM EDT [facility] 400 Name Value Range Interpretation Code Description Data Angélica rce(s) Supporting Document(s ) UNK <item><content [facility] styleCode="Bold"> Medical Cent er Culture Report </content>
<t able><tbody><tr>< td>Specimen Number:</td><td>[id number]</td></tr ><tr><td>Sample Collection Date/Time: </td><td> 9 12:00 PM</td></tr><tr>< td>Specimen Source:</td><td>B LOOD</td></tr><tr ><td>Blood Culture:</td><td> Collection Plate Date: 11/26/2018 12:27 </td></tr><tr><td >Culture Status:</td><td>P reliminary </td></tr><tr><td >Culture Report:</td><td>N O GROWTH AFTER 48 HOURS </td></tr></tbody ></table></item> UNK <item><content [facility] styleCode="Bold"> Medical Cent er Culture Status </content>
<t able><tbody><tr>< td>Specimen Number:</td><td>[id number]</td></tr ><tr><td>Sample Collection Date/Time: </td><td> 9 12:00 PM</td></tr><tr>< td>Specimen Source:</td><td>B LOOD</td></tr><tr ><td>Culture Report:</td><td>N O GROWTH AFTER 48 HOURS </td></tr><tr><td >Culture Status:</td><td>P reliminary </td></tr><tr><td >Blood Culture:</td><td> Collection Plate Date: 11/26/2018 12:27 </td></tr></tbody ></table></item> Procedure Social History Code Duration Value Status Description Data Source(s ) Smoking 04/17/2019 Denies Ever completed Denies Ever Smoked [facility] 05:34:00 PM EST Smoked Medical C enter Smoking 04/17/2019 Denies Ever completed Denies Ever Smoked [facility] 05:33:00 PM EST Smoked Medical C enter Smoking 04/17/2019 Denies Ever completed Denies Ever Smoked [facility] [place] 05:19:00 PM EST Smoked Medical C enter Smoking 11/26/2018 Denies Ever completed Denies Ever Smoked [facility] [place] 07:01:00 PM EDT Smoked Medical C enter Smoking 11/26/2018 Denies Ever completed Denies Ever Smoked [facility] [place] 12:01:00 PM EDT Smoked Medical C enter Smoking 11/26/2018 Denies Ever completed Denies Ever Smoked [facility] [place] 12:00:00 PM EDT Smoked Medical C enter Smoking 11/26/2018 Denies Ever completed Denies Ever Smoked [facility] [place] 11:01:00 AM EDT Smoked Medical C enter Smoking 11/22/2018 Denies Ever completed Denies Ever Smoked [facility] [place] 04:52:00 PM EDT Smoked Medical C enter Smoking 11/22/2018 Denies Ever completed Denies Ever Smoked [facility] [place] 04:35:00 PM EDT Smoked Medical C enter Vital Signs ID Date Data Source UNK Name Value Range Interpretation Code Description Data Source(s) Body temperature 36.053927 36.847382 [facility] Respiratory rate 17 /min 17 /min [facility] Oxygen saturation 99 % 99 % [facility] by Pulse oximetry Heart rate 78 /min 78 /min [facility] Diastolic blood 77 mm[Hg] 77 mm[Hg] [facility] Systolic blood 125 mm[Hg] 125 mm[Hg] [facility] Body temperature 36.412426 36.543027 [facility] Respiratory rate 17 /min 17 /min [facility] Oxygen saturation 99 % 99 % [facility] by Pulse oximetry Heart rate 82 /min 82 /min [facility] Diastolic blood 87 mm[Hg] 87 mm[Hg] [facility] Systolic blood 138 mm[Hg] 138 mm[Hg] [facility] Body temperature 36.075227 36.423144 [facility] Respiratory rate 18 /min 18 /min [facility] Oxygen saturation 98 % 98 % [facility] by Pulse oximetry Heart rate 83 /min 83 /min [facility] Body height 175.358094 175.530708 cm [facility] Diastolic blood 63 mm[Hg] 63 mm[Hg] [facility] Systolic blood 142 mm[Hg] 142 mm[Hg] [facility] Body mass index 30.1 kg/m2 30.1 kg/m2 [facility] (BMI) [Ratio] [facility] [address] Body weight 92.540582 kg 92.675234 kg [facility] Body temperature 36.058553 36.358263 [facility] Respiratory rate 20 /min 20 /min [facility] Heart rate 65 /min 65 /min [facility] Diastolic blood 75 mm[Hg] 75 mm[Hg] [facility] Systolic blood 127 mm[Hg] 127 mm[Hg] [facility] [place] Body temperature 37.171701 37.454984 [facility] Respiratory rate 20 /min 20 /min [facility] Heart rate 71 /min 71 /min [facility] Diastolic blood 81 mm[Hg] 81 mm[Hg] [facility] [place] Systolic blood 138 mm[Hg] 138 mm[Hg] [facility] [place] Body temperature 36.354076 36.559251 [facility] Respiratory rate 18 /min 18 /min [facility] Heart rate 66 /min 66 /min [facility] Diastolic blood 54 mm[Hg] 54 mm[Hg] [facility] Systolic blood 98 mm[Hg] 98 mm[Hg] [facility] Body temperature 36.104414 36.874057 [facility] Respiratory rate 20 /min 20 /min [facility] Heart rate 55 /min 55 /min [facility] Diastolic blood 75 mm[Hg] 75 mm[Hg] [facility] Systolic blood 121 mm[Hg] 121 mm[Hg] [facility] [place] Body temperature 36.578810 36.502655 [facility] Respiratory rate 20 /min 20 /min [facility] Heart rate 62 /min 62 /min [facility] Diastolic blood 77 mm[Hg] 77 mm[Hg] [facility] Systolic blood 124 mm[Hg] 124 mm[Hg] [facility] Body temperature 37.011654 37.087043 [facility] Respiratory rate 20 /min 20 /min [facility] Heart rate 56 /min 56 /min [facility] Diastolic blood 59 mm[Hg] 59 mm[Hg] [facility] Systolic blood 124 mm[Hg] 124 mm[Hg] [facility] [place] Body weight 91.586491 kg 91.816483 kg [facility] Body height 175.759705 175.715744 cm [facility] Center Body mass index 29.63 kg/m2 29.63 kg/m2 [facility] (BMI) [Ratio] [facility] [address] Body temperature 36.889035 36.448881 [facility] Respiratory rate 20 /min 20 /min [facility] Heart rate 51 /min 51 /min [facility] Diastolic blood 74 mm[Hg] 74 mm[Hg] [facility] Systolic blood 123 mm[Hg] 123 mm[Hg] [facility] Oxygen saturation 98 % 98 % [facility] Arterial blood [facility] Center by Pulse oximetry Body temperature 36.065607 36.231919 [facility] Respiratory rate 18 /min 18 /min [facility] Heart rate 58 /min 58 /min [facility] Diastolic blood 96 mm[Hg] 96 mm[Hg] [facility] Systolic blood 144 mm[Hg] 144 mm[Hg] [facility] Oxygen saturation 99 % 99 % [facility] blood [facility] by Pulse oximetry Body temperature 36.310772 36.932636 [facility] Respiratory rate 18 /min 18 /min [facility] Heart rate 58 /min 58 /min [facility] Diastolic blood 98 mm[Hg] 98 mm[Hg] [facility] Systolic blood 146 mm[Hg] 146 mm[Hg] [facility] Body weight 92.214971 kg 92.792747 kg [facility] Oxygen saturation 98 % 98 % [facility] Arterial blood [facility] by Pulse oximetry Body height 175.111303 175.243566 cm [facility] Body mass index 30.1 kg/m2 30.1 kg/m2 [facility] (BMI) [Ratio] [facility] [address] Body temperature 36.353363 36.991653 [facility] Respiratory rate 17 /min 17 /min [facility] Heart rate 65 /min 65 /min [facility] Diastolic blood 65 mm[Hg] 65 mm[Hg] [facility] Systolic blood 120 mm[Hg] 120 mm[Hg] [facility] Body temperature 36.844420 36.573617 [facility] Respiratory rate 18 /min 18 /min [facility] Oxygen saturation 100 % 100 % [facility] Arterial blood [facility] by Pulse oximetry Heart rate 60 /min 60 /min [facility] Diastolic blood 68 mm[Hg] 68 mm[Hg] [facility] Systolic blood 140 mm[Hg] 140 mm[Hg] [facility] Body temperature 36.682710 36.780519 [facility] Respiratory rate 18 /min 18 /min [facility] Oxygen saturation 98 % 98 % [facility] Arterial blood [facility] by Pulse oximetry Heart rate 53 /min 53 /min [facility] Diastolic blood 63 mm[Hg] 63 mm[Hg] [facility] Systolic blood 148 mm[Hg] 148 mm[Hg] [facility]
[2020-01-12 18:57] LABS: BASO % 0.8 % (0-2.0); EOS % 1.7 % (0-4.5); HEMATOCRIT 39.2 % (35.4-49); HEMOGLOBIN 13.1 GM/dL (11.7-16.9); MCH 34.1 pg (25.7-33.7); MCHC 33.5 g/dl (32.0-35.9); MEAN CELL VOLUME 101.7 fl (80-96); MONO % 6.3 % (3.8-10.2); NEUT % 60.2 % (42.8-82.8); PLATELET COUNT 118 K/MM3 (134-434); RBC 3.85 M/mm3 (4.00-5.60); RDW 12.6 % (11.9-15.9); WHITE BLOOD COUNT 2.8 K/mm3 (4.0-10.0)
--- NOTE | 2020-01-12 19:08 | PDOC ---
History of Present Illness - General Chief Complaint: Chest Pain Stated Complaint: CHEST PAINS Time Seen by Provider: 01/12/20 18:16 - History of Present Illness Initial Comments: 01/12/20 20:05 54yo M w/ hx UC, stents, and DM presents w/ L-sided chest pain since last night. He was watching the election when this started in his L mid-axillary area under his breast. "It feels like something is dripping down my chest on the inside." It was constant until he took 4 baby aspirin, which resolved the pain. He had no associated n/v/d, or diaphoresis. He endorses some lightheadedness but says it may be from his DM.Today the pain came back, and it shot across his chest, so he decided to come for evaluation. Denies recent fevers. Past History - Medical History Allergies/Adverse Reactions: Allergies Allergy/AdvReac Type Severity Reaction Status Date / Time No Known Allergies Allergy Verified 01/12/20 18:19 Home Medications: Ambulatory Orders Levothyroxine [Synthroid -] 50 mcg PO DAILY 01/29/12 Escitalopram Oxalate [Lexapro -] 5 mg PO DAILY 01/24/15 Insulin (Levemir) [Levemir Vial] 30 units SQ DAILY 01/24/15 Insulin Lispro [Humalog] 0 units SQ BID 01/24/15 Mercaptopurine [Purinethol -] 50 mg PO BID 01/24/15 Quetiapine Fumarate [Seroquel] 1 tab PO HS 01/24/15 Aspirin 81 mg PO DAILY 11/17/18 Clopidogrel Bisulfate [Plavix -] 75 mg PO DAILY 11/17/18 Anemia: No Asthma: No Cancer: No Cardiac Disorders: No CVA: No COPD: No CHF: No Dementia: No Diabetes: Yes GI Disorders: Yes (COLITIS) Disorders: No HTN: Yes Hypercholesterolemia: Yes Liver Disease: No Seizures: No Thyroid Disease: Yes (HYPO) - Surgical History Abdominal Surgery: No Appendectomy: No Cardiac Surgery: Yes (stent placed) Cholecystectomy: No Lung Surgery: No Neurologic Surgery: No Orthopedic Surgery: No - Immunization History Td Vaccination: Yes TDAP Vaccination: Yes Immunization Up to Date: Yes - Psycho-Social/Smoking History Smoking Status: No Smoking History: Never smoked Have you smoked in the past 12 months: No Number of Cigarettes Smoked Daily: 0 Information on smoking cessation initiated: No - Substance Abuse Hx (Audit-C & DAST Scrn) How often the patient has a drink containing alcohol: Never Score: In Men: 4 or > Positive; In Women: 3 or > Positive: 0 Screen Result (Pos requires Nsg. Audit-10AR): Negative In the last yr the pt used illegal drug/Rx for NonMed reason: No Score: Yes response is considered Positive: 0 Screen Result (Positive result requires Nsg. DAST-10): Negative Review of Systems - Review of Systems Able to Perform ROS?: Yes Is the patient limited Camb[place]ian proficient: No Constitutional: No: Symptoms Reported, Chills, Diaphoresis, Fever HEENTM: No: Recent change in vision, Tinnitus Respiratory: Yes: Productive cough (intermittent, clear phlegm). No: Cough, Shortness of Breath, SOB with Exertion, SOB at Rest, Hemoptysis Cardiac (ROS): Yes: Chest Pain, Lightheadedness. No: Edema, Irregular Heart Rate, Palpitations, Syncope, Chest Tightness ABD/GI: No: Symptoms Reported : No: Symptoms Reported Musculoskeletal: No: Symptoms Reported Integumentary: No: Symptoms Reported Neurological: No: Symptoms reported Endocrine: No: Symptoms Reported Hematologic/Lymphatic: No: Symptoms Reported All Other Systems: Reviewed and Negative *Physical Exam - Vital Signs Last Vital Signs Temp Pulse Resp BP Pulse Ox 98.1 F 64 17 123/81 100 01/12/20 18:16 01/12/20 18:16 01/12/20 18:16 01/12/20 18:16 01/12/20 18:16 - Physical Exam General Appearance: Yes: Nourished, Appropriately Dressed. No: Apparent Distress HEENT: positive: EOMI, SCARLET, Normal ENT Inspection Neck: positive: Trachea midline. negative: Tender, Carotid bruit Respiratory/Chest: positive: Lungs Clear, Normal Breath Sounds. negative: Chest Tender, Respiratory Distress, Accessory Muscle Use Cardiovascular: positive: Regular Rhythm, Regular Rate Vascular Pulses: Carotid (R): 2+, Carotid (L): 2+, Dorsalis-Pedis (R): 2+, Doralis-Pedis (L): 2+ Gastrointestinal/Abdominal: positive: Normal Bowel Sounds, Soft Musculoskeletal: positive: Normal Inspection. negative: CVA Tenderness Extremity: positive: Normal Capillary Refill, Normal Inspection, Normal Range of Motion Integumentary: positive: Normal Color, Dry, Warm Neurologic: positive: Fully Oriented, Alert, Normal Response ED Treatment Course - LABORATORY CBC & Chemistry Diagram: 01/12/20 18:50 01/12/20 18:50 - ADDITIONAL ORDERS Additional order review: 01/12/20 18:50 RBC 3.85 L MCV 101.7 H MCHC 33.5 RDW 12.6 D MPV 8.0 Neutrophils % 60.2 Lymphocytes % 31.0 Monocytes % 6.3 Eosinophils % 1.7 Basophils % 0.8 Medical Decision Making - Medical Decision Making 01/12/20 21:22 54yo M w/ hx stents. will admit to tele obs. Discharge - Discharge Information Problems reviewed: Yes Clinical Impression/Diagnosis: Chest pain Qualifiers: Chest pain type: unspecified Qualified Code(s): R07.9 - Chest pain, unspecified CAD (coronary artery disease) Qualifiers: Coronary Disease-Associated Artery/Lesion type: unspecified vessel or lesion type [place] vs. transplanted heart: unspecified whether [place] or transplanted heart Associated angina: with unspecified angina Qualified Code(s): I25.119 - Atherosclerotic heart disease of [place] coronary artery with unspecified angina pectoris - Admission Yes - Follow up/Referral - Patient Discharge Instructions - Post Discharge Activity
--- NOTE | 2020-01-12 19:17 | PDOC ---
Attending Attestation - Resident Resident Name: Emilee العلي - ED Attending Attestation I have performed the following: I have examined & evaluated the patient, The case was reviewed & discussed with the resident, I agree w/resident's findings & plan - HPI HPI: 01/12/20 20:40 see resident hpi - Physicial Exam PE: 01/12/20 20:41 see resident exam - Medical Decision Making 01/12/20 20:41 54-year-old male with history of coronary artery disease status post stents x1 now with intermittent left-sided chest pain EKG shows a sinus bradycardia at 52 bpm with no acute ST elevations There are no significant changes when compared to previous Chest x-ray shows no focal consolidation or widened mediastinum D-dimer and troponin are within normal limits We will admit to telemetry observation for serial troponins Patient is currently chest pain-free Discharge - Discharge Information Problems reviewed: Yes Clinical Impression/Diagnosis: Chest pain, CAD (coronary artery disease) - Follow up/Referral Referrals: Laura Underwood NP [Primary Care Provider] - - Patient Discharge Instructions - Post Discharge Activity
[2020-01-12 19:21] LABS: CHLORIDE 105 mmol/L (98-107); SODIUM 140 mmol/L (136-145)
[2020-01-12 19:24] LABS: ALBUMIN 3.6 g/dl (3.4-5.0); CALCIUM 8.9 mg/dL (8.5-10.1)
[2020-01-12 19:25] LABS: ANION GAP 4 MMOL/L (8-16); CO2 31 mmol/L (21-32); GLUCOSE,RANDOM 167 mg/dL (74-106)
[2020-01-12 19:28] LABS: CREATININE 1.1 mg/dL (0.55-1.3); SGOT/AST 26 U/L (15-37); SGPT/ALT 32 U/L (13-61)
[2020-01-12 19:30] LABS: BILIRUBIN,TOTAL 0.9 mg/dL (0.2-1); TOT PROT 6.6 g/dl (6.4-8.2)
[2020-01-12 19:31] LABS: ALK PHOS 75 U/L (45-117)
[2020-01-12 20:13] LABS: INR 1.01 (0.83-1.09); PROTHROMBIN TIME (PATIENT) 12.2 SEC (9.7-13.0)
--- OUTSIDE RECORDS SUMMARY | 2020-01-12 21:14 | XMS ---
:1965 Author Organization [facility] Care Team Providers Name Role Phone HHHVCC, HDSW9 Unavailable Unavailable GRAVES ALANIS W Unavailable [...] is protected by Article 27-F of the [place] State Public Health law. If you continue you may haveaccess to information: Regarding HIV / AIDS; Provided by facilities licensed or operated by the [facility] Office of Mental Health; or Provided by the [facility] Office for People With Developmental Disabilities. If such information is present, then the following [facility] mandated warning applies: This information has [...] law may result in a fine or long-term sentence or both. A general authorization for the release of medical or other information is NOT sufficient authorization for further disclosure. Encounters Encounter Providers Location Date Indications Data Source(s ) Outpatient Attender: [id number] 12/13/2019 [facility] ([facility] 03:33:48 PM [facility] EDT Patient admitted. Outpatient Attender: [facility] 10/09/2019 11:19:46 AM [facility] ([facility]) Patient admitted. Outpatient Attender: [address] 04/27/2019 11:48:27 AM [facility] ([facility]) Patient admitted. Emergency Attender: ADDISON Brian 04/17/2019 05:15:00 PM [facility] ST[facility] ED STAFF EST - 04/17/2019 [facility] PHYSICIANAdmitter: ADDISON 07:36:00 PM EST ALANIS W Patient discharged. 04/17/2019 12:00:00 AM [facility] EST - 05/07/2016 12:00:00 Center AM EST Emergency Attender: VENKATESH CASTANON H-HAL6 11/26/2018 10:43:00 AM [facility] Y EDT - 11/28/2018 07:59:00 [place] PM EDT Patient discharged. Emergency H 11/22/2018 04:08:00 PM EDT - [address] [place] [address] 07:22:00 PM EDT Patient discharged. Insurance Providers Payer name Policy type Policy ID Covered Covered alliance party's Policy P jigna / Coverage alliance party ID relationship to [place] [employer] type [place] MEDICARE [id number] SP [id number] VIP MEDICAID [id number] SP [id number] O [id number] HIP O [id number] RALLS O [id number] HEALTHCARE [place] D[place] [id number] SP [id number] COMPLETE W [id number] [place] MEDICARE [id number] SP [id number] [facility] 01 [facility] Problems, Conditions, and Diagnoses Code Display Name [...] PAIN IN LEFT ARM Diagnosis 04/17/2019 Sa mlaik [facility] 05:15:00 PM Medical EST Center Z95.5 Presence of coronary PRESENCE OF Diagnosis 11/26/2018 Jesússolange Delarosa angioplasty implant CORONARY 10:43:00 AM [facility] elva and graft ANGIOPLASTY EDT Center IMPLANT AND GRAFT I25.10 Atherosclerotic ATHSCL HEART Diagnosis 11/26/2018 [facility] heart disease of DISEASE OF [place] 10:43:00 AM Medical [place] coronary CORONARY ARTERY EDT Cent er artery without W/O ANG PCTRS angina [...] Otitis media, OTITIS MEDIA, Diagnosis 11/22/2018 [facility] unspecified, left UNSPECIFIED, LEFT 04:08:00 PM Medical ear EAR EDT Center H92.09 Otalgia, unspecified OTALGIA, Diagnosis 11/22/2018 [facility]osa ear UNSPECIFIED EAR 04:08:00 PM Medical EDT Center Results ID Date Data Source [id number] 11/05/2019 12:00:00 AM EDT [facility] Name Value Range Interpretation Code Description Data Angélica rce(s) Supporting Document(s ) SARS-CoV-2 [facility] BY PCR This lab was ordered by SHIRA Dsouza and reported by [facility]. ID Date Data Source Liver 11/27/2018 05:15:00 AM EDT [facility] Profile.[id number] Name Value Range Interpretation Description Data Sup porting Code Source(s) Document(s ) Alkaline 38-126 <content [facility] phosphatase styleCode="Bold"> [place] [...] s"> (3.5-5.0 G/DL)</content> ID Date Data Source Hormones.[id number] 11/27/2018 05:15:00 AM EDT [facility] Name Value Range Interpretation Description Data Sup porting Code Source(s) Document(s ) Thyrotropin 0.465-4. <content [facility] [Units/volume] 68 styleCode="Yesenia [place] in Serum or d">Thyroid Medical Plasma by Stimulating Center Detection Hormone limit <= 0.05 </content>1.77 mIU/L MIU/L<content styleCode="Jazmine lics"> (0.465-4.68 MIU/L)</conten t> ID Date Data Source HematologyRou.[id number] 11/27/2018 05:15:00 AM EDT Jesús [facility] 0400 Name Value Range Interpretation Description Data [...] low normal <content [facility] [Volume 0 styleCode="[facility]old [facility] Fraction] of ">Hematocrit Medical Blood by </content>33.6 Center Automated count % L<content styleCode="Ital ics"> (41.0-53.0 %)</content> Leukocytes 4.4-11.0 Below low normal <content Saint [#/volume] in styleCode="Bold [place] Blood by ">White Blood Medical Automated count Cell Count Center </content>2.79 KCUMM L<content styleCode="Ital ics"> (4.4-11.0 KCUMM)</content > Erythrocyte 11.5-14. <content [facility] distribution 5 styleCode="Bold [facility] width [Ratio] by ">Red Cell Medical Automated count Distribution Center Width </content>13.0 %<content styleCode="Ital ics"> (11.5-14.5 %)</content> Erythrocyte mean 26.0-34. Above high <content [facility] corpuscular 0 normal styleCode="Bold [facility] hemoglobin ">Mean Medical [Entitic mass] Corposcular Center [...] Basophils 0.0-1.0 <content [facility] [#/volume] in styleCode="Bold [facility] Blood by ">Basophil Medical Automated count </content>0.7 Center %<content styleCode="Ital ics"> (0.0-1.0 %)</content> UNK 0-0.1 <content [facility] styleCode="Bold [place] ">Immature Medical Granulocyte Center Count </content>0.01 KCUMM<content styleCode="Ital ics"> (0-0.1 KCUMM)</content > UNK < 1 <content [facility] styleCode="Bold [place] ">Immature Medical Granulocyte Center Ratio </content>0.4 %<content styleCode="Ital ics"> (< 1 %)</content> ID Date Data Source GFR(Creatinine).[id number] 11/27/2018 05:15:00 AM EDT [facility] 0-0400 Name Value Range Interpretation Code Description Data Angélica rce(s) Supporting Document(s ) UNK > 60 <content [facility] styleCode="Bold"> Medical Cent er EGFR </content>100 GFR<content styleCode="Italic s"> (> 60 GFR)</content> ID Date Data Source CHMROUTINECCDA.[id number] 11/27/2018 05:15:00 AM EDT [facility] -0400 Name Value Range Interpretation Description Data Sup porting Code Source(s) Document(s ) UNK 2.3-3.5 <content [facility] styleCode="Bold Medical ">Globulin Center </content>2.5 G/DL<content styleCode="Ital ics"> (2.3-3.5 G/DL)</content> UNK >= 1.0 <content [facility] styleCode="Bold Medical ">AG Ratio Center </content>1.6 <content styleCode="Ital ics"> (>= 1.0 )</content> UNK 4.2-5.8 Above high normal <content [facility] styleCode="Bold Medical ">Hemoglobin Center A1C </content>6.2 % H<content styleCode="Ital ics"> (4.2-5.8 %)</content> Protein 6.3-8.2 <content [facility] [place] [Mass/volum styleCode="Bold Medical e] in Serum ">Total Protein Center or Plasma </content>6.4 G/DL<content styleCode="Ital ics"> (6.3-8.2 G/DL)</content> ID Date Data Source [facility].[id number] 11/27/2018 05:15:00 AM EDT [facility] Center Name Value Range Interpretation Description Data Sup porting Code Source(s) Document(s ) Chloride 98-107 <content [facility] [Moles/volume] in styleCode="Bold"> Shira phs Serum or Plasma Chloride Medical </content>103 Center MEQ/L<content styleCode="Italic s"> (98-107 MEQ/L)</content> Sodium 137-145 <content [facility] [Moles/volume] in styleCode="Bold"> Shira phs Serum or Plasma Sodium Medical </content>138 Center MEQ/L<content styleCode="Italic s"> (137-145 MEQ/L)</content> Potassium 3.5-5.3 <content [facility] [Moles/volume] in styleCode="Bold"> Shira phs Serum or Plasma Potassium Medical </content>3.8 Center [...] s"> (7-50 IU/L)</content> ID Date Data Source Urinalysis.[id number] 11/26/2018 01:10:00 PM EDT [facility] 0 Name Value Range Interpretation Description [...] by Test d">Urine Medical strip Specific Center [place] </content>1.01 0 L<content styleCode="Jazmine lics"> (1.015-1.025 )</content> Leukocyte NEGATIVE <content [facility] esterase styleCode="Yesenia [facility]osa [Presence] in d">Urine Medical Urine by Test Leukocyte Center strip </content>NEGA TIVE <content styleCode="Jazmine lics"> (NEGATIVE )</content> UNK 0-3 <content Saint styleCode="Yesenia Del[facility]osa d">Urine Red Medical Blood Cell Center </content>0-3 HPF<content styleCode="Jazmine lics"> (0-3 HPF)</content> Nitrite NEGATIVE <content [facility] [Presence] in styleCode="Yesenia Delarosa Urine by Test d">Urine Medical strip Nitrite Center </content>NEGA TIVE <content styleCode="Jazmine lics"> (NEGATIVE )</content> Urobilinogen 0.2-1.0 <content [facility] [Units/volume] styleCode="Yesenia Delar[place] in Urine by d">Urine Medical Test strip Urobilinogen Center </content>0.2 MG/DL<content styleCode="Jazmine lics"> (0.2-1.0 MG/DL)</conten t> ID Date Data Source Microbiology.[id number] 11/26/2018 01:00:00 PM EDT Jes[facility] 400 Name Value Range Interpretation Code Description Data Angélica rce(s) Supporting Document(s ) UNK <item><content [place] styleCode="Bold"> Medical Cent er Culture Report </content>
<t able><tbody><tr>< td>Specimen Number:</td><td>[id number]</td></tr ><tr><td>Sample Collection Date/Time: </td><td> 9 1:00 PM</td></tr><tr>< td>Specimen Source:</td><td>E AR</td></tr><tr>< td>Gram Stain:</td><td>RA RE GRAM NEGATIVE BACILLI </td></tr><tr><td >Wound Culture:</td><td> Collection Plate Date: 11/26/2018 13:06 </td></tr><tr><td >Culture Status:</td><td>F inal </td></tr><tr><td >Culture Report:</td><td>N O GROWTH </td></tr></tbody ></table></item> UNK <item><content [facility] styleCode="Bold"> Medical [facility] er Culture Status </content>
<t able><tbody><tr>< td>Specimen Number:</td><td>[id number]</td></tr ><tr><td>Sample Collection Date/Time: </td><td> 9 1:00 PM</td></tr><tr>< td>Specimen Source:</td><td>E AR</td></tr><tr>< td>Culture Status:</td><td>F inal </td></tr><tr><td >Culture Report:</td><td>N O GROWTH </td></tr><tr><td >Wound Culture:</td><td> Collection Plate Date: 11/26/2018 13:06 </td></tr><tr><td >Gram Stain:</td><td>RA RE GRAM NEGATIVE BACILLI </td></tr></tbody ></table></item> ID Date Data Source Coagulation 11/26/2018 12:53:00 PM [facility] Rout.[id number] EDT Name Value Range Interpretation Description Data [...] cs"> (25.1-36.5 SEC)</content> ID Date Data Source Microbiology.[id number] 11/26/2018 12:18:00 PM EDT Jes[facility]s [facility] 400 Name Value Range Interpretation Code Description Data Angélica rce(s) Supporting Document(s ) UNK <item><content [facility] styleCode="Bold"> Medical Cent er Culture Report </content>
<t able><tbody><tr>< td>Specimen Number:</td><td>[id number]</td></tr ><tr><td>Sample Collection Date/Time: </td><td> 9 12:18 PM</td></tr><tr>< td>Specimen Source:</td><td>B LOOD</td></tr><tr ><td>Blood Culture:</td><td> Collection Plate Date: 11/26/2018 12:28 </td></tr><tr><td >Culture Status:</td><td>P reliminary </td></tr><tr><td >Culture Report:</td><td>N O GROWTH AFTER 48 HOURS </td></tr></tbody ></table></item> UNK <item><content [facility] styleCode="Bold"> Medical [facility] er Culture Status </content>
<t able><tbody><tr>< td>Specimen Number:</td><td>[id number]</td></tr ><tr><td>Sample Collection Date/Time: </td><td> 12:18 PM</td></tr><tr>< td>Specimen Source:</td><td>B LOOD</td></tr><tr ><td>Culture Report:</td><td>N O GROWTH AFTER 48 HOURS </td></tr><tr><td >Culture Status:</td><td>P reliminary </td></tr><tr><td >Blood Culture:</td><td> Collection Plate Date: 11/26/2018 12:28 </td></tr></tbody ></table></item> ID Date Data Source HematologyRou.[id number] 11/26/2018 12:18:00 PM EDT Jes[facility] 0400 Name Value Range Interpretation Description Data [...] (< 1 %)</content> ID Date Data Source GFR(Creatinine).[id number] 11/26/2018 12:18:00 PM EDT [facility] 0-0400 Name Value Range Interpretation Code Description Data Angélica rce(s) Supporting Document(s ) UNK > 60 <content [facility] [place] styleCode="Bold"> Medical Cent er EGFR </content>100 GFR<content styleCode="Italic s"> (> 60 GFR)</content> ID Date Data Source NINA.[id number] 11/26/2018 12:18:00 PM EDT [facility] -0400 Name Value Range Interpretation Description Data Sup porting Code Source(s) Document(s ) Lactate 0.7-2.0 <content [facility] [place] [Mass/volum styleCode="Bold Medical e] in Serum ">Lactic Acid Center or Plasma </content>1.0 MMOLL<content styleCode="Ital ics"> (0.7-2.0 MMOLL)</content > ID Date Data Source [facility].[id number] 11/26/2018 12:18:00 PM EDT [facility] Name Value Range Interpretation Description Data [...] t> Calcium 8.4-10.2 <content [facility] [Mass/volume] styleCode="Yesenia Delarosa in Serum or d">Calcium Medical Plasma </content>9.4 Center MG/DL<content styleCode="Jazmine lics"> (8.4-10.2 MG/DL)</conten t> Creatinine 0.5-1.3 <content [facility] [Mass/volume] styleCode="Yesenia Delar[place] in Serum or d">Creatinine Medical Plasma </content>1.0 Center MG/DL<content styleCode="Jamzine lics"> (0.5-1.3 MG/DL)</conten t> UNK > 60 <content styleCode="Yesenia Delarosa d">EGFR Medical </content>100 Center GFR<content styleCode="Jazmine lics"> (> 60 GFR)</content> Glucose 74-106 Above high normal <content [facility] [Mass/volume] styleCode="Yesenia Delarosa in Serum or d">Glucose Medical Plasma </content>322 Center MG/DL H<content styleCode="Jazmine lics"> (74-106 MG/DL)</conten t> ID Date Data Source Microbiology.[id number] 11/26/2018 12:00:00 PM EDT [facility] 400 Name Value Range Interpretation Code Description Data Angélica rce(s) Supporting Document(s ) UNK <item><content [place] styleCode="Bold"> Medical Cent er Culture Report </content>
<t able><tbody><tr>< td>Specimen Number:</td><td>[id number]</td></tr ><tr><td>Sample Collection Date/Time: </td><td> 9 12:00 PM</td></tr><tr>< td>Specimen Source:</td><td>B LOOD</td></tr><tr ><td>Blood Culture:</td><td> Collection Plate Date: 11/26/2018 12:27 </td></tr><tr><td >Culture Status:</td><td>P reliminary </td></tr><tr><td >Culture Report:</td><td>N O GROWTH AFTER 48 HOURS </td></tr></tbody ></table></item> UNK <item><content [facility] styleCode="Bold"> Medical Cent er Culture Status </content>
<t able><tbody><tr>< td>Specimen Number:</td><td>[id number]</td></tr ><tr><td>Sample Collection Date/Time: </td><td> 9 12:00 PM</td></tr><tr>< td>Specimen Source:</td><td>B LOOD</td></tr><tr ><td>Culture Report:</td><td>N O GROWTH AFTER 48 HOURS </td></tr><tr><td >Culture Status:</td><td>P reliminary </td></tr><tr><td >Blood Culture:</td><td> Collection Plate Date: 11/26/2018 12:27 </td></tr></tbody ></table></item> Procedure Social History Code Duration Value Status Description Data Source(s ) Smoking 04/17/2019 Denies Ever completed Denies Ever Smoked [facility] 05:34:00 PM EST Smoked Medical C enter [...] Interpretation Code Description Data Source(s) Body temperature 36.128347 36.955486 [facility] Respiratory rate 17 /min 17 /min [facility] Oxygen saturation 99 % 99 % [facility] by Pulse oximetry Heart rate 78 /min 78 /min [facility] Diastolic blood 77 mm[Hg] 77 mm[Hg] [facility] Systolic blood 125 mm[Hg] 125 mm[Hg] [facility] Body temperature 36.301285 36.205276 [facility] Respiratory rate 17 /min 17 /min [facility] Oxygen saturation 99 % 99 % [facility] by Pulse oximetry Heart rate 82 /min 82 /min [facility] Diastolic blood 87 mm[Hg] 87 mm[Hg] [facility] Systolic blood 138 mm[Hg] 138 mm[Hg] [facility] Body temperature 36.047615 36.007525 [facility] Respiratory rate 18 /min 18 /min [facility] Oxygen saturation 98 % 98 % [facility] by Pulse oximetry Heart rate 83 /min 83 /min [facility] Body height 175.250576 175.577185 cm [facility] Diastolic blood 63 mm[Hg] 63 mm[Hg] [facility] pressure Medical Center Systolic blood 142 mm[Hg] 142 mm[Hg] [facility] Medical Center Body mass index 30.1 kg/m2 30.1 kg/m2 [facility] (BMI) [Ratio] Medical [address] Body weight 92.337483 kg 92.425663 kg [facility] Measured Medical Center Body temperature 36.750571 36.921779 [facility] Respiratory rate 20 /min 20 /min [facility] Heart rate 65 /min 65 /min [facility] Diastolic blood 75 mm[Hg] 75 mm[Hg] [facility] pressure Medical Center Systolic blood 127 mm[Hg] 127 mm[Hg] [facility] Medical Center Body temperature 37.364646 37.614962 [facility] Respiratory rate 20 /min 20 /min [facility] Heart rate 71 /min 71 /min [facility] Diastolic blood 81 mm[Hg] 81 mm[Hg] [facility] Medical Center Systolic blood 138 mm[Hg] 138 mm[Hg] [facility] Medical [place] Body temperature 36.388463 36.742956 [facility] Respiratory rate 18 /min 18 /min [facility] Heart rate 66 /min 66 /min [facility] Diastolic blood 54 mm[Hg] 54 mm[Hg] [facility] Center Systolic blood 98 mm[Hg] 98 mm[Hg] [facility] Medical [place] Body temperature 36.382197 36.974290 [facility] Respiratory rate 20 /min 20 /min [facility] Heart rate 55 /min 55 /min [facility] Diastolic blood 75 mm[Hg] 75 mm[Hg] [facility] Center Systolic blood 121 mm[Hg] 121 mm[Hg] [facility] Medical Center Body temperature 36.710364 36.131489 [facility] Respiratory rate 20 /min 20 /min [facility] Heart rate 62 /min 62 /min [facility] Diastolic blood 77 mm[Hg] 77 mm[Hg] [facility] Medical Center Systolic blood 124 mm[Hg] 124 mm[Hg] [facility] Body temperature 37.282901 37.359417 [facility] Respiratory rate 20 /min 20 /min [facility] Heart rate 56 /min 56 /min [facility] Diastolic blood 59 mm[Hg] 59 mm[Hg] [facility] Center Systolic blood 124 mm[Hg] 124 mm[Hg] [facility] Medical [place] Body weight 91.779536 kg 91.307686 kg [facility] Measured Medical Center Body height 175.146019 175.441771 cm [facility] Body mass index 29.63 kg/m2 29.63 kg/m2 [facility] (BMI) [Ratio] Medical [address] Body temperature 36.792881 36.199953 [facility] Respiratory rate 20 /min 20 /min [facility] Heart rate 51 /min 51 /min [facility] Diastolic blood 74 mm[Hg] 74 mm[Hg] [facility] Systolic blood 123 mm[Hg] 123 mm[Hg] [facility] Oxygen saturation 98 % 98 % [facility] Arterial blood [facility] by Pulse oximetry Body temperature 36.875546 36.486455 [facility] Respiratory rate 18 /min 18 /min [facility] Heart rate 58 /min 58 /min [facility] Diastolic blood 96 mm[Hg] 96 mm[Hg] [facility] Systolic blood 144 mm[Hg] 144 mm[Hg] [facility] Oxygen saturation 99 % 99 % [facility] blood [facility] by Pulse oximetry Body temperature 36.598275 36.699263 [facility] Respiratory rate 18 /min 18 /min [facility] Heart rate 58 /min 58 /min [facility] Diastolic blood 98 mm[Hg] 98 mm[Hg] [facility] Center Systolic blood 146 mm[Hg] 146 mm[Hg] [facility] Body weight 92.328472 kg 92.043881 kg [facility] Measured Medical Center Oxygen saturation 98 % 98 % [facility] Arterial blood Medical Center by Pulse oximetry Body height 175.652115 175.769875 cm [facility] Body mass index 30.1 kg/m2 30.1 kg/m2 [facility] (BMI) [Ratio] Medical [facility] ter Body temperature 36.920803 36.894243 [facility] Respiratory rate 17 /min 17 /min [facility] Heart rate 65 /min 65 /min [facility] Diastolic blood 65 mm[Hg] 65 mm[Hg] [facility] pressure [facility] Systolic blood 120 mm[Hg] 120 mm[Hg] [facility] Body temperature 36.347248 36.742903 [facility] Respiratory rate 18 /min 18 /min [facility] Oxygen saturation 100 % 100 % [facility] Arterial blood [facility] by Pulse oximetry Heart rate 60 /min 60 /min [facility] Diastolic blood 68 mm[Hg] 68 mm[Hg] [facility] Systolic blood 140 mm[Hg] 140 mm[Hg] [facility] Body temperature 36.185829 36.896723 [facility] Respiratory rate 18 /min 18 /min [facility] Oxygen saturation 98 % 98 % [facility] Arterial blood [facility] by Pulse oximetry Heart rate 53 /min 53 /min [facility] Diastolic blood 63 mm[Hg] 63 mm[Hg] [facility] Systolic blood 148 mm[Hg] 148 mm[Hg] [facility]
[2020-01-13 05:41] LABS: BASO % 0.9 % (0-2.0); EOS % 1.7 % (0-4.5); HEMATOCRIT 38.7 % (35.4-49); HEMOGLOBIN 12.9 GM/dL (11.7-16.9); LYMPH % 34.8 % (8-40); MCH 33.7 pg (25.7-33.7); MCHC 33.3 g/dl (32.0-35.9); MEAN CELL VOLUME 101.3 fl (80-96); MONO % 7.9 % (3.8-10.2); NEUT % 54.7 % (42.8-82.8); PLATELET COUNT 104 K/MM3 (134-434); RBC 3.82 M/mm3 (4.00-5.60); RDW 12.7 % (11.9-15.9); WHITE BLOOD COUNT 2.9 K/mm3 (4.0-10.0)
[2020-01-13 05:54] LABS: CHLORIDE 106 mmol/L (98-107); POTASSIUM 3.8 mmol/L (3.5-5.1); SODIUM 140 mmol/L (136-145)
[2020-01-13 05:57] LABS: ANION GAP 4 MMOL/L (8-16); CALCIUM 8.8 mg/dL (8.5-10.1); CO2 29 mmol/L (21-32)
[2020-01-13 05:58] LABS: ALBUMIN 3.4 g/dl (3.4-5.0); GLUCOSE,RANDOM 185 mg/dL (74-106)
[2020-01-13 06:01] LABS: SGOT/AST 23 U/L (15-37); SGPT/ALT 28 U/L (13-61)
[2020-01-13 06:02] LABS: TOT PROT 6.1 g/dl (6.4-8.2)
[2020-01-13 06:03] LABS: ALK PHOS 69 U/L (45-117)
--- NOTE | 2020-01-13 11:48 | EKG ---
Test Reason : Blood Pressure : / mmHG Vent. Rate : 052 BPM Atrial Rate : 052 BPM P-R Int : 140 ms QRS Dur : 094 ms QT Int : 420 ms P-R-T Axes : 066 -37 -09 degrees QTc Int : 390 ms SINUS BRADYCARDIA LEFT AXIS DEVIATION INCOMPLETE RIGHT BUNDLE BRANCH BLOCK ABNORMAL ECG WHEN COMPARED WITH ECG OF 11-OCT-2019 03:21, INCOMPLETE RIGHT BUNDLE BRANCH BLOCK IS NOW PRESENT Confirmed by ZAIRA DONIS, JUMA ([id number]) on 01/13/2020 11:48:18 AM Referred By: Confirmed By:JUMA MENESES MD
[2020-01-13 12:23] VITALS: BP 110/72; PULSE 89; TEMP 98.6
== END 2020-01-13 12:00 | disposition left against medical advice (07) ==
LOC: JER 18:00 → JERBED 21:01
PROVIDERS: ADMIT Internal Medicine; ATTEND Internal Medicine
DX: I25.119 Atherosclerotic heart disease of native coronary artery with unspecified angina pectoris (principal); I25.2 Old myocardial infarction; I25.10 Atherosclerotic heart disease of native coronary artery without angina pectoris; Z95.1 Presence of aortocoronary bypass graft; R00.1 Bradycardia, unspecified; E11.9 Type 2 diabetes mellitus without complications; Z79.4 Long term (current) use of insulin; K51.90 Ulcerative colitis, unspecified, without complications
CPT/HCPCS: 36415; 71045-TC-FY; 80053; 82550; 82553; 84484; 85025; 85379; 85610; 85730; 93005; 93010; 99285-25; C9803; G0378; U0003

== ENCOUNTER 2022-07-09 17:10 | Observation (INO) | payer OTHER ==
[2022-07-09 17:17] VITALS: BMI 30.1
[2022-07-09 18:57] LABS: BASO % 0.8 % (0-2.0); HEMATOCRIT 39.7 % (35.4-49); HEMOGLOBIN 13.8 GM/dL (11.7-16.9); LYMPH % 32.7 % (8-40); MCH 33.3 pg (25.7-33.7); MCHC 34.8 g/dl (32.0-35.9); MEAN CELL VOLUME 95.8 fl (80-96); MEAN PLT VOLUME 8.7 fl (7.5-11.1); MONO % 4.9 % (3.8-10.2); NEUT % 59.6 % (42.8-82.8); PLATELET COUNT 159 10^3/uL (134-434); RBC 4.14 M/mm3 (4.00-5.60); RDW 13.2 % (11.9-15.9); WHITE BLOOD COUNT 4.1 K/mm3 (4.0-10.0)
[2022-07-09 19:21] LABS: CHLORIDE 106 mmol/L (98-107); POTASSIUM 3.6 mmol/L (3.5-5.1); SODIUM 138 mmol/L (136-145)
[2022-07-09 19:24] LABS: ALBUMIN 3.9 g/dl (3.4-5.0); ANION GAP 5 MMOL/L (8-16); BLOOD UREA NITROGEN 14.2 mg/dL (7-18); CALCIUM 9.3 mg/dL (8.5-10.1); CO2 27 mmol/L (21-32); GLUCOSE,RANDOM 136 mg/dL (74-106)
[2022-07-09 19:25] LABS: LIPASE 83 U/L (73-393)
[2022-07-09 19:28] LABS: CREATININE 1.1 mg/dL (0.55-1.3); SGOT/AST 17 U/L (15-37); SGPT/ALT 24 U/L (13-61)
[2022-07-09 19:29] LABS: BILIRUBIN,TOTAL 0.4 mg/dL (0.2-1); TOT PROT 6.9 g/dl (6.4-8.2)
[2022-07-09 19:31] LABS: ALK PHOS 67 U/L (45-117)
[2022-07-09 19:44] LABS: ERYTHROCYTE SEDIMENTATION RATE 3 mm/hr (0-20)
[2022-07-09] MEDS ORDERED: methylPREDNISolone NA SUCC 125 MG/2 ML VIAL IVPUSH ONE (21:08)
[2022-07-09] MEDS ORDERED: methylPREDNISolone NA SUCC 125 MG/2 ML VIAL ONE (21:32)
[2022-07-09] MEDS ORDERED: DEXTROSE 50%-WATER 25 GM/50 ML DISP.SYRIN ONE (21:52)
[2022-07-09] MEDS ORDERED: DEXTROSE 50%-WATER - 25 GM/50 ML VIAL IVPUSH ONE (21:52)
[2022-07-09] MEDS: DEXTROSE 5%-NORMAL SALINE 1,000 ML IV SCH (22:56)
[2022-07-10] MEDS ORDERED: ACETAMINOPHEN 1000 MG/100 ML BAG IVPB PRN (01:34)
[2022-07-10 02:43] VITALS: RESP 18
[2022-07-10] MEDS: LEVOTHYROXINE NA 50 MCG TABLET (FP) PO SCH (06:02)
[2022-07-10 08:10] LABS: BASO % 0.3 % (0-2.0); HEMATOCRIT 38.6 % (35.4-49); HEMOGLOBIN 13.9 GM/dL (11.7-16.9); LYMPH % 12.5 % (8-40); MCH 34.3 pg (25.7-33.7); MCHC 35.9 g/dl (32.0-35.9); MEAN CELL VOLUME 95.6 fl (80-96); MEAN PLT VOLUME 9.1 fl (7.5-11.1); MONO % 1.5 % (3.8-10.2); NEUT % 85.7 % (42.8-82.8); PLATELET COUNT 152 10^3/uL (134-434); RBC 4.04 M/mm3 (4.00-5.60); WHITE BLOOD COUNT 4.1 K/mm3 (4.0-10.0)
[2022-07-10 08:41] LABS: POTASSIUM 4.3 mmol/L (3.5-5.1)
[2022-07-10 08:43] LABS: ALBUMIN 3.8 g/dl (3.4-5.0); BLOOD UREA NITROGEN 11.2 mg/dL (7-18); CALCIUM 9.2 mg/dL (8.5-10.1)
[2022-07-10 08:48] LABS: BILIRUBIN,TOTAL 0.6 mg/dL (0.2-1); TOT PROT 6.9 g/dl (6.4-8.2)
[2022-07-10] MEDS: CLOPIDOGREL BISULFATE 75 MG TABLET (FP) PO SCH (10:14)
[2022-07-10] MEDS: ESCITALOPRAM OXALATE 10 MG TABLET PO SCH ×2 (10:15→10:23)
[2022-07-10] MEDS: ASPIRIN 81 MG CHEWABLE TABLETS PO SCH (10:15)
[2022-07-10] MEDS ORDERED: INSULIN (NOVOLOG) ASPART 100 UNITS/ML 10ML VIAL SQ ONE (13:00)
[2022-07-10] MEDS ORDERED: QUEtiapine FUMARATE 100 MG TABLET (FP) PO SCH (22:00)
[2022-07-11] MEDS: LEVOTHYROXINE NA 50 MCG TABLET (FP) PO SCH (06:03)
[2022-07-11] MEDS: DEXTROSE 5%-NORMAL SALINE 1,000 ML IV SCH (06:04)
[2022-07-11 08:56] VITALS: BP 109/70; PULSE 68; TEMP 98.1
[2022-07-11] MEDS: CLOPIDOGREL BISULFATE 75 MG TABLET (FP) PO SCH (09:49)
[2022-07-11] MEDS: ASPIRIN 81 MG CHEWABLE TABLETS PO SCH (09:49)
[2022-07-11] MEDS: ESCITALOPRAM OXALATE 10 MG TABLET PO SCH (10:58)
== END 2022-07-11 13:09 | disposition left against medical advice (07) ==
LOC: JER 17:10 → UNDOADMOB 21:09 → JERBED 21:09 → INTOOBSV 07-10 01:31 → OBSVTOIN 07-10 01:31 → JERBED 07-10 01:43 → J5S 07-10 01:56 → JERBED 07-10 01:56 → J5S 07-10 10:26
PROVIDERS: ADMIT Internal Medicine; ATTEND Internal Medicine
PROC: 3E0333Z Introduction of Anti-inflammatory into Peripheral Vein, Percutaneous Approach (ICD-10-PCS; principal; 2022-07-10)
PROC: 3E033GC Introduction of Other Therapeutic Substance into Peripheral Vein, Percutaneous Approach (ICD-10-PCS; 2022-07-10)
PROC: 3E013VG Introduction of Insulin into Subcutaneous Tissue, Percutaneous Approach (ICD-10-PCS; 2022-07-10)
DX: K51.90 Ulcerative colitis, unspecified, without complications (principal); K62.5 Hemorrhage of anus and rectum; R10.9 Unspecified abdominal pain; I10 Essential (primary) hypertension; E11.9 Type 2 diabetes mellitus without complications; I25.10 Atherosclerotic heart disease of native coronary artery without angina pectoris; E78.5 Hyperlipidemia, unspecified; E03.9 Hypothyroidism, unspecified; F32.A Depression, unspecified; Z79.4 Long term (current) use of insulin; Z95.5 Presence of coronary angioplasty implant and graft
CPT/HCPCS: 0241U-QW; 36415; 74177-TC; 80053; 82962; 83690; 83735; 84443; 84484; 85025; 85651; 86140; 86850; 86900; 86901; 93005; 93010; 96372; 96374; 96375; 99285-25; G0378; Q9967

== ENCOUNTER 2022-08-27 04:51 | Day surgery (SDC) | payer OTHER ==
[2022-08-23 10:20] VITALS: BMI 30.8
[2022-08-27 15:21] VITALS: TEMP 98.2
[2022-08-27 15:53] VITALS: BP 131/69
[2022-08-27 16:04] VITALS: PULSE 51; RESP 14
== END 2022-08-27 16:30 | disposition home or self-care (01) ==
LOC: JASU-ENDO 04:51
PROVIDERS: ATTEND Student in an Organized Health Care Education/Training Program
PROC: 0DBN8ZX Excision of Sigmoid Colon, Via Natural or Artificial Opening Endoscopic, Diagnostic (ICD-10-PCS; 2022-08-27)
PROC: 0DBM8ZX Excision of Descending Colon, Via Natural or Artificial Opening Endoscopic, Diagnostic (ICD-10-PCS; 2022-08-27)
PROC: 0DBH8ZX Excision of Cecum, Via Natural or Artificial Opening Endoscopic, Diagnostic (ICD-10-PCS; 2022-08-27)
PROC: 0DBK8ZX Excision of Ascending Colon, Via Natural or Artificial Opening Endoscopic, Diagnostic (ICD-10-PCS; principal; 2022-08-27 13:00)
DX: K52.9 Noninfective gastroenteritis and colitis, unspecified (principal); I10 Essential (primary) hypertension; E11.9 Type 2 diabetes mellitus without complications; Z79.4 Long term (current) use of insulin
CPT/HCPCS: 82962; 88305-TC

== ENCOUNTER 2023-09-14 18:43 | Emergency (ER) | payer OTHER ==
[2023-09-14 19:04] VITALS: BP 110/64; PULSE 72; RESP 18; TEMP 97.4; BMI 29.4
== END 2023-09-14 19:56 | disposition home or self-care (01) ==
LOC: FER 18:43
DX: E11.649 Type 2 diabetes mellitus with hypoglycemia without coma (principal); Z79.4 Long term (current) use of insulin; T38.3X1A Poisoning by insulin and oral hypoglycemic [antidiabetic] drugs, accidental (unintentional), initial encounter
CPT/HCPCS: 82962; 93005; 99284-25

== ENCOUNTER 2024-02-18 14:23 | Emergency (ER) | payer OTHER ==
[2024-02-18 14:32] VITALS: BP 130/72; PULSE 78; RESP 18; TEMP 98.4; BMI 29.5
[2024-02-18] MEDS ORDERED: KETOROLAC TROMETHAMINE 15 MG/ML VIAL ONE (14:54)
[2024-02-18] MEDS: KETOROLAC TROMETHAMINE 15 MG/ML VIAL IVPUSH ONE (15:07)
[2024-02-18 15:08] LABS: HEMATOCRIT 40.6 % (35.4-49); HEMOGLOBIN 13.6 G/dL (11.7-16.9); MCH 31.4 pg (25.7-33.7); MCHC 33.4 g/dl (32.0-35.9); MEAN CELL VOLUME 94.2 fl (80-96); MEAN PLT VOLUME 9.6 fl (7.5-11.1); PLATELET COUNT 137.2 10^3/uL (134-434); RBC 4.31 10^6/uL (4.00-5.60); RDW 12.8 % (11.9-15.9); WHITE BLOOD COUNT 5.9 10^3/uL (4.0-10.8)
[2024-02-18 15:10] LABS: PLATELET ESTIMATE ADEQUATE
[2024-02-18 15:14] LABS: ALBUMIN 4.1 g/dl (3.4-5.0); BILIRUBIN,TOTAL 0.7 mg/dl (0.2-1); CALCIUM 9.3 mg/dl (8.5-10.1); CREATININE 1.2 mg/dl (0.6-1.3); POTASSIUM 4.4 mmol/L (3.5-5.1); TOT PROT 6.2 g/dl (6.4-8.2)
[2024-02-18 18:05] LABS: THROAT:GRP A STREP NOT DETECTED (NOTDETECTED)
== END 2024-02-18 16:00 | disposition home or self-care (01) ==
LOC: FER 14:23
PROC: 3E0333Z Introduction of Anti-inflammatory into Peripheral Vein, Percutaneous Approach (ICD-10-PCS; principal; 2024-02-18)
DX: R05.9 Cough, unspecified (principal); R07.89 Other chest pain; R06.00 Dyspnea, unspecified; B34.9 Viral infection, unspecified; J02.9 Acute pharyngitis, unspecified; Z20.822 Contact with and (suspected) exposure to COVID-19
CPT/HCPCS: 0241U-QW; 36415; 71046-TC-FY; 80053; 84484; 85027; 87651; 93005; 99285-25